=== PATIENT | female | born 1935 | race Caucasian/White ===

== ENCOUNTER 2019-07-05 09:57 | Day surgery (SDC) | payer MEDICARE ==
[~2019-07-05] VITALS: Ht 160 cm; Wt 78.5 kg
[2019-07-05] VITALS (21 sets, daily range): BP systolic 100–119; BP diastolic 55–84
[~2019-07-05 09:57] MED LIST: AMIO200T61 PO; AMLO2.5T2 PO; APIX5TAB3 PO; CHOL2000 PO; CRANBERRY PO; CYAN-51 PO; DOCU-329 PO; FOLI0.4T2 PO; FURO40TA4 PO; GLUC100017 PO; LISI-600 PO; METO50TA17 PO; NITR0.4T48 SL; POTA20TA10 PO; PRAV80TA3 PO; VITA400C19 PO
[2019-07-05] MEDS ORDERED: fentaNYL/PF 50MCG/1 ML 2ML syringe IV ONE (10:30)
[2019-07-05] MEDS ORDERED: MIDAZolam 1mg/ml 10ml vial IV ONE (10:30)
[2019-07-05] MEDS ORDERED: glycopyrrolate 0.2mg/ml inj IV ONE (10:30)
[2019-07-05 11:07] LABS: BASOPHILS # (AUTO) 0.1 X10'3 (0-0.2); BASOPHILS % (AUTO) 1.1 % (0-1); EOSINOPHILS # (AUTO) 0.2 X10'3 (0-0.9); EOSINOPHILS % (AUTO) 2.7 % (0-6); HEMATOCRIT 34.6 % (35.0-45.0); HEMOGLOBIN 11.6 g/dl (12.0-16.0); LYMPHOCYTES % (AUTO) 17.5 % (21-51); MEAN CORPUSCULAR HEMOGLOBIN 33.5 PG (27.0-31.0); MEAN CORPUSCULAR HGB CONC 33.5 g/dL (33.0-36.5); MEAN PLATELET VOLUME 9.9 FL (7.4-10.4); MONOCYTES # (AUTO) 0.7 X10'3 (0-0.9); MONOCYTES % (AUTO) 12.3 % (2-12); NEUTROPHILS # (AUTO) 3.7 X10'3 (1.8-7.7); NEUTROPHILS % (AUTO) 66.4 % (42-75); PLATELET COUNT 202 X10'3 (140-440); RED BLOOD COUNT 3.46 X10'6 (4.20-5.60); RED CELL DISTRIBUTION WIDTH 14.5 % (11.5-14.5); WHITE BLOOD COUNT 5.5 X10'3 (4.5-11.0)
[2019-07-05 11:16] LABS: ALBUMIN 3.5 G/DL (3.4-5.0); ANION GAP 7 (8-16); BLOOD UREA NITROGEN 30 MG/DL (7-18); BUN/CREATININE RATIO 16.8 (6.6-38.0); CALCIUM 9.2 MG/DL (8.5-10.1); CHLORIDE 103 MMOL/L (99-107); CREATININE 1.79 MG/DL (0.40-0.90); GLUCOSE 102 MG/DL (70-104); MAGNESIUM 2.7 MG/DL (1.5-2.4); POTASSIUM 4.6 MMOL/L (3.5-5.1); SODIUM 139 MMOL/L (135-145); TOTAL CARBON DIOXIDE 28.9 MMOL/L (24-32); eGFR 27 ML/MIN
[2019-07-05] MEDS ORDERED: normal saline 1000ml 1,000 ML IV SCH (11:20)
== END 2019-07-05 15:15 | disposition home or self-care (01) ==
LOC: SSTAY O 09:57
PROVIDERS: ATTEND Internal Medicine Cardiovascular Disease
DX: I48.91 Unspecified atrial fibrillation (principal); I34.0 Nonrheumatic mitral (valve) insufficiency; I42.0 Dilated cardiomyopathy; I44.7 Left bundle-branch block, unspecified; I49.3 Ventricular premature depolarization
CPT/HCPCS: 36415; 80048; 83735; 85025; 85610; 92960; 93005; 93312; J2250; J3010; J7030; 93306; J3490

== ENCOUNTER 2020-03-23 19:27 | Emergency (ER) | payer MEDICARE ==
[~2020-03-23] VITALS: Ht 160 cm; Wt 69.5 kg
[~2020-03-23 19:27] MED LIST changes: -AMLO2.5T2 PO; -CHOL2000 PO; -CYAN-51 PO; -DOCU-329 PO; +DOCU250C96 PO; +FURO20TA4 PO; -FURO40TA4 PO; +GLUC-253; -GLUC100017 PO; +LACT10SO PO; +MAGN500T15 PO; +METO25TA6 PO; -METO50TA17 PO; +MYL80T PO; +OMEP20TA23 PO; +POTA10TA19 PO; -POTA20TA10 PO; +TORS20TA3 PO; +TRAM50TA2 PO; +TRAZ-251 PO; -VITA400C19 PO
[2020-03-23 19:55] LABS: BASOPHILS % (AUTO) 0.3 % (0-1); EOSINOPHILS % (AUTO) 0.1 % (0-6); HEMATOCRIT 29.5 % (35.0-45.0); HEMOGLOBIN 10.3 g/dl (12.0-16.0); LYMPHOCYTES # (AUTO) 0.9 X10'3 (1.1-4.8); LYMPHOCYTES % (AUTO) 22.9 % (21-51); MEAN CORPUSCULAR HEMOGLOBIN 34.1 PG (27.0-31.0); MEAN CORPUSCULAR HGB CONC 34.8 g/dL (33.0-36.5); MEAN CORPUSCULAR VOLUME 98.2 FL (78-98); MEAN PLATELET VOLUME 8.8 FL (7.4-10.4); MONOCYTES # (AUTO) 0.5 X10'3 (0-0.9); MONOCYTES % (AUTO) 11.4 % (2-12); NEUTROPHILS # (AUTO) 2.6 X10'3 (1.8-7.7); NEUTROPHILS % (AUTO) 65.3 % (42-75); PLATELET COUNT 149 X10'3 (140-440); RED BLOOD COUNT 3.01 X10'6 (4.20-5.60); RED CELL DISTRIBUTION WIDTH 14.1 % (11.5-14.5)
[2020-03-23 20:15] LABS: CLARITY,URINE CLEAR (Clear); COLOR,URINE YELLOW (Yellow); GLUCOSE, URINE NEGATIVE (Neg); KETONES,URINE NEGATIVE (Neg); LEUKOCYTE ESTERASE ,URINE LARGE (Neg); NITRITES, URINE NEGATIVE (Neg); OCCULT BLOOD,URINE NEGATIVE (Neg); PH,URINE 7.5 (4.8-8.0); PROTEIN,URINE NEGATIVE (Neg); UROBILINOGEN,URINE 0.2 E.U/dL (0.2-1.0)
[2020-03-23 20:20] LABS: ALANINE AMINOTRANSFERASE 42 U/L (12-78); ALBUMIN 2.9 G/DL (3.4-5.0); ALBUMIN/GLOBULIN RATIO 0.9 (1.1-1.5); ALKALINE PHOSPHATASE 69 IU/L (46-116); ANION GAP 8 (8-16); ASPARTATE AMINO TRANSFERASE 28 U/L (10-37); BILIRUBIN,TOTAL 0.4 MG/DL (0.1-1.0); BLOOD UREA NITROGEN 19 MG/DL (7-18); CALCIUM 8.4 MG/DL (8.5-10.1); CHLORIDE 98 MMOL/L (99-107); CREATININE 1.12 MG/DL (0.40-0.90); GLUCOSE 98 MG/DL (70-104); POTASSIUM 4.3 MMOL/L (3.5-5.1); SODIUM 132 MMOL/L (135-145); TOTAL PROTEIN 6.1 G/DL (6.4-8.2); eGFR 46 ML/MIN
[2020-03-23 20:22] LABS: UA COLLECTION TYPE STRAIGHT CATH
[2020-03-23 20:23] LABS: BACTERIA,URINE 1+ /HPF (Neg); RBC,URINE NONE SEEN /HPF (0-2); SQUAMOUS EPITHELIAL CELL,UR FEW /LPF (FEW); WBC,URINE 30-50 /HPF (0-4)
[2020-03-23] MEDS ORDERED: CefTRIAXone/D5W-Rocephin 1gm 50 ML IV ONE (20:55)
[2020-03-23] MEDS ORDERED: CEPH500C5 PO (20:59)
[2020-03-23 21:30] VITALS: BP 143/87
== END 2020-03-23 21:41 | disposition home or self-care (01) ==
LOC: ER 19:27
DX: U07.1 COVID-19 (principal); N39.0 Urinary tract infection, site not specified; R11.0 Nausea; R53.1 Weakness; E86.0 Dehydration; I48.91 Unspecified atrial fibrillation; I50.9 Heart failure, unspecified; I10 Essential (primary) hypertension; Z88.2 Allergy status to sulfonamides; Z88.8 Allergy status to other drugs, medicaments and biological substances; Z79.899 Other long term (current) drug therapy
CPT/HCPCS: 36415; 71045; 80053; 81001; 83605; 83735; 84145; 85025; 87088; 93005; 96365; 99285; J0696

== ENCOUNTER 2020-06-19 09:55 | Emergency (ER) | payer MEDICARE ==
[~2020-06-19] VITALS: Ht 160 cm; Wt 69.5 kg
[~2020-06-19 09:55] MED LIST changes: -FOLI0.4T2 PO; +FOLI0.4T6 PO; -LACT10SO PO; +LACT10SO3 PO; -LISI-600 PO; +LISI20TA28 PO; +LOP25T PO; -METO25TA6 PO; -MYL80T PO; +SIME80TA15 PO
[2020-06-19] MEDS ORDERED: traMADol 50MG tablet PO ONE (11:10)
[2020-06-19 11:18] VITALS: BP 131/58
[2020-06-19] MEDS ORDERED: TRAM50TA2 PO (11:44)
== END 2020-06-19 12:19 | disposition home or self-care (01) ==
LOC: ER 09:56
DX: S52.531A Colles' fracture of right radius, initial encounter for closed fracture (principal); M25.531 Pain in right wrist; M25.511 Pain in right shoulder; R53.1 Weakness; I48.91 Unspecified atrial fibrillation; I11.0 Hypertensive heart disease with heart failure; I50.9 Heart failure, unspecified; Z98.890 Other specified postprocedural states; Z88.2 Allergy status to sulfonamides; Z88.8 Allergy status to other drugs, medicaments and biological substances; Z79.899 Other long term (current) drug therapy; W18.30XA Fall on same level, unspecified, initial encounter; Y93.89 Activity, other specified; Y92.89 Other specified places as the place of occurrence of the external cause; Y99.8 Other external cause status
CPT/HCPCS: 29125; 73090; 73110; 99284

== ENCOUNTER 2021-02-19 20:32 | Inpatient (IN) | payer MEDICARE ==
[~2021-02-19] VITALS: Ht 157.5 cm; Wt 82.1 kg
[~2021-02-19 20:32] MED LIST changes: -FURO20TA4 PO; -LACT10SO3 PO; +POTA-192 PO; -POTA10TA19 PO; -TRAZ-251 PO
[2021-02-19 21:17] LABS: BASOPHILS # (AUTO) 0.1 X10'3 (0-0.2); HEMATOCRIT 29.6 % (35.0-45.0); LYMPHOCYTES # (AUTO) 1.1 X10'3 (1.1-4.8)
[2021-02-19 21:18] LABS: BASOPHILS % (AUTO) 1.1 % (0-1); EOSINOPHILS % (AUTO) 0.4 % (0-6); LYMPHOCYTES % (AUTO) 21.3 % (21-51); MEAN CORPUSCULAR HEMOGLOBIN 33.9 PG (27.0-31.0); MEAN CORPUSCULAR HGB CONC 33.6 g/dL (33.0-36.5); MEAN CORPUSCULAR VOLUME 100.9 FL (78-98); MEAN PLATELET VOLUME 9.5 FL (7.4-10.4); MONOCYTES # (AUTO) 0.5 X10'3 (0-0.9); MONOCYTES % (AUTO) 10.5 % (2-12); NEUTROPHILS # (AUTO) 3.3 X10'3 (1.8-7.7); NEUTROPHILS % (AUTO) 66.7 % (42-75); PLATELET COUNT 287 X10'3 (140-440); RED BLOOD COUNT 2.94 X10'6 (4.20-5.60); RED CELL DISTRIBUTION WIDTH 16.5 % (11.5-14.5)
--- NOTE | 2021-02-19 21:21 | NUR ---
PT ROOMED IN BED 8. ASSUMED CARE OF PT. RECIEVED REPORT FROM EMS
--- NOTE | 2021-02-19 21:23 | NUR ---
PT TO CT
[2021-02-19 21:31] LABS: ALANINE AMINOTRANSFERASE 29 U/L (12-78); ALBUMIN 3.4 G/DL (3.4-5.0); ALKALINE PHOSPHATASE 131 IU/L (46-116); ANION GAP 9 (8-16); ASPARTATE AMINO TRANSFERASE 25 U/L (10-37); BILIRUBIN,TOTAL 0.6 MG/DL (0.1-1.0); BLOOD UREA NITROGEN 23 MG/DL (7-18); BUN/CREATININE RATIO 14.6 (6.6-38.0); CALCIUM 8.5 MG/DL (8.5-10.1); CHLORIDE 95 MMOL/L (99-107); CREATININE 1.58 MG/DL (0.40-0.90); GLUCOSE 123 MG/DL (70-104); POTASSIUM 4.9 MMOL/L (3.5-5.1); SODIUM 131 MMOL/L (135-145); TOTAL CARBON DIOXIDE 27.2 MMOL/L (24-32); TOTAL PROTEIN 6.7 G/DL (6.4-8.2); eGFR 31 ML/MIN
--- NOTE | 2021-02-19 21:32 | NUR ---
PT BACK FROM CT.
[2021-02-19 21:43] LABS: ANISOCYTOSIS 1+; GIANT PLATELET FEW; LARGE PLATELETS FEW; PLATELET ESTIMATE NORMAL; POLYCHROMASIA FEW
[2021-02-19 21:44] LABS: BURR CELLS FEW; SCHISTOCYTES FEW
[2021-02-19] MEDS ORDERED: furosemide 10 MG/1 ML 10ml inj IV ONE (21:45)
[2021-02-19] MEDS ORDERED: CefTRIAXone/D5W-Rocephin 1gm 50 ML IV ONE (21:55)
[2021-02-19] MEDS ORDERED: azithromycin/NS 500mg/250ml 250 ML IV ONE (21:55)
[2021-02-19 23:49] LABS: COLOR,URINE YELLOW (Yellow); GLUCOSE, URINE NEGATIVE (Neg); KETONES,URINE NEGATIVE (Neg); LEUKOCYTE ESTERASE ,URINE NEGATIVE (Neg); NITRITES, URINE NEGATIVE (Neg); OCCULT BLOOD,URINE NEGATIVE (Neg); PH,URINE 6.5 (4.8-8.0); PROTEIN,URINE NEGATIVE (Neg); UROBILINOGEN,URINE 0.2 E.U/dL (0.2-1.0)
[2021-02-19 23:51] LABS: UA COLLECTION TYPE STRAIGHT CATH
[2021-02-20 00:02] LABS: CLARITY,URINE SLIGHTLY CLOUDY (Clear)
[2021-02-20 00:03] LABS: BACTERIA,URINE FEW /HPF (Neg); RBC,URINE 0-2 /HPF (0-2)
[2021-02-20 00:04] LABS: HYALINE CASTS 0-3 /LPF (NEGATIVE); MUCUS STRANDS FEW /LPF (Neg); SQUAMOUS EPITHELIAL CELL,UR FEW /LPF (FEW)
[2021-02-20] MEDS ORDERED: PERFLUTREN PROTEIN-A MICROSPHR (Optison) 0.22 MG/ML 3ML VIAL IV PRN (00:25)
[2021-02-20] MEDS ORDERED: potassium Cl 20 mEq SR tablet PO PRN ×2 (00:25)
[2021-02-20] MEDS ORDERED: magnesium 4gm in 100ml NS 100 ML IV PRN (00:25)
[2021-02-20] MEDS ORDERED: magnesium 2GM in 50ml NS 50 ML IV PRN (00:25)
[2021-02-20] MEDS ORDERED: magnesium hydroxide 30ml (MOM) UD suspension PO PRN (00:25)
[2021-02-20] MEDS ORDERED: ondansetron/PF 4mg/2ml inj IV PRN (00:25)
[2021-02-20] MEDS ORDERED: potassium CL 10mEq/100ml bag 100 ML IV PRN (00:25)
[2021-02-20] MEDS ORDERED: mag hydrox/Alum hydrox/simeth 30ml oral suspension PO PRN (00:25)
[2021-02-20] MEDS ORDERED: magnesium Cl slow-release 64mg tablet PO PRN (00:25)
[2021-02-20] MEDS ORDERED: acetaminophen 325mg tablet PO PRN (00:25)
[2021-02-20] MEDS ORDERED: furosemide 20 MG/2 ML vial IV ONE ×2 (00:40→10:30)
--- NOTE | 2021-02-20 01:28 | NUR ---
SPOKE TO DR GALLARDO CONCERNING PT'S BP AND NEW ORDER FOR LASIX. DR GALLARDO WANTS TO RETIME HER LASIX FOR 1030 IN THE AM. HE ALSO RECOMMENDED OTIS WRAPPING PT'S LEGS. DAUGHTER HAD NOTED THAT PT'S BP HAS BEEN LOW OF LATE AND THAT HIS DOCTOR HAS BEEN REDUCING HER BP MEDS.
--- NOTE | 2021-02-20 01:33 | NUR ---
SPOKE TO PHARMACY, THEY WILL RETIME LASIX TOMORROW.
[2021-02-20 01:36] LABS: MAGNESIUM 2.7 MG/DL (1.5-2.4); POTASSIUM 4.6 MMOL/L (3.5-5.1)
--- NOTE | 2021-02-20 01:52 | NUR ---
SPOKE TO PT'S DAUGHTER OVER THE PHONE. DAUGHTER IS CONCERNED ABOUT PT'S DEPRESSION OVER THE PAST FEW WEEKS.
[2021-02-20] MEDS ORDERED: POLY119P2 PO (03:57)
[2021-02-20] MEDS ORDERED: APIX2.5T PO (03:57)
[2021-02-20] MEDS ORDERED: CITA20TA28 PO (03:57)
[2021-02-20] MEDS ORDERED: TRAZ-251 PO (03:57)
[2021-02-20] MEDS ORDERED: ACET-3067 PO (03:57)
--- NOTE | 2021-02-20 04:49 | NUR ---
PT HAD A LARGE BM. PT CLEANED UP. BEDSHEET AND CLOTHES CHANGED.
[2021-02-20] MEDS ORDERED: nitroGLYCERIN 0.4mg SUBLingual tab SL PRN (05:20)
[2021-02-20] MEDS: K and/or MAG REPLACEMENT MC SCH ×2 (08:00→20:00)
[2021-02-20] MEDS ORDERED: CRANBERRY PO SCH (08:00)
[2021-02-20] MEDS ORDERED: polyethylene glycol 3350 17gm powd pack PO SCH (08:00)
[2021-02-20] MEDS: pantoprazole 40mg Tablet.DR PO SCH (09:57)
[2021-02-20] MEDS: folic acid 1mg tablet PO SCH (09:57)
[2021-02-20] MEDS: apixaban 2.5mg tablet PO SCH ×2 (09:57→21:39)
[2021-02-20] MEDS: docusate sod 100mg capsule PO SCH ×2 (09:57→20:00)
[2021-02-20] MEDS: CITALOpram 10mg tablet PO SCH (09:59)
[2021-02-20] MEDS: amiodarone 200mg tablet PO SCH (09:59)
[2021-02-20] MEDS ORDERED: furosemide 10 MG/1 ML 10ml inj IV ONE (10:15)
[2021-02-20 11:00] VITALS: BP 119/81
[2021-02-20] MEDS ORDERED: CITA-311 PO (13:01)
[2021-02-20 15:00] VITALS: BP 99/73
[2021-02-20] MEDS ORDERED: ondansetron 4mg rapidly disintigrating tab PO PRN (16:15)
[2021-02-20 18:00] VITALS: BP 101/60
[2021-02-20] MEDS: furosemide 40mg/4ml inj IV SCH (21:39)
[2021-02-20] MEDS: traZODone 50mg tablet PO SCH (21:39)
[2021-02-20] MEDS: pravastatin 40mg tablet PO SCH (21:40)
[2021-02-20 22:00] VITALS: BP 106/73
[2021-02-21 02:00] VITALS: BP 97/63
[2021-02-21 06:00] VITALS: BP 98/66
[2021-02-21 06:35] LABS: BASOPHILS % (AUTO) 1.4 % (0-1); HEMATOCRIT 26.9 % (35.0-45.0); LYMPHOCYTES # (AUTO) 0.7 X10'3 (1.1-4.8); LYMPHOCYTES % (AUTO) 23.8 % (21-51); MEAN CORPUSCULAR HEMOGLOBIN 33.8 PG (27.0-31.0); MEAN CORPUSCULAR HGB CONC 33.3 g/dL (33.0-36.5); MEAN CORPUSCULAR VOLUME 101.5 FL (78-98); MEAN PLATELET VOLUME 9.7 FL (7.4-10.4); MONOCYTES # (AUTO) 0.4 X10'3 (0-0.9); MONOCYTES % (AUTO) 12.6 % (2-12); NEUTROPHILS # (AUTO) 1.8 X10'3 (1.8-7.7); NEUTROPHILS % (AUTO) 61.2 % (42-75); PLATELET COUNT 230 X10'3 (140-440); RED BLOOD COUNT 2.65 X10'6 (4.20-5.60); RED CELL DISTRIBUTION WIDTH 16.6 % (11.5-14.5)
[2021-02-21 07:04] LABS: ALANINE AMINOTRANSFERASE 22 U/L (12-78); ALKALINE PHOSPHATASE 105 IU/L (46-116); ANION GAP 8 (8-16); ASPARTATE AMINO TRANSFERASE 17 U/L (10-37); BILIRUBIN,TOTAL 0.7 MG/DL (0.1-1.0); BLOOD UREA NITROGEN 19 MG/DL (7-18); BUN/CREATININE RATIO 12.4 (6.6-38.0); CALCIUM 8.5 MG/DL (8.5-10.1); CHLORIDE 102 MMOL/L (99-107); CREATININE 1.53 MG/DL (0.40-0.90); GLUCOSE 107 MG/DL (70-104); POTASSIUM 3.9 MMOL/L (3.5-5.1); SODIUM 137 MMOL/L (135-145); TOTAL CARBON DIOXIDE 27.1 MMOL/L (24-32); TOTAL PROTEIN 5.9 G/DL (6.4-8.2); eGFR 32 ML/MIN
[2021-02-21] MEDS: K and/or MAG REPLACEMENT MC SCH ×2 (08:00→20:00)
[2021-02-21 08:17] LABS: TOTAL CELLS COUNTED 100
[2021-02-21 08:18] LABS: ANISOCYTOSIS 1+; PLATELET ESTIMATE NORMAL
[2021-02-21 08:19] LABS: BURR CELLS 1+; SCHISTOCYTES FEW
[2021-02-21 08:21] LABS: LARGE PLATELETS FEW; POLYCHROMASIA FEW
[2021-02-21] MEDS: amiodarone 200mg tablet PO SCH (08:32)
[2021-02-21] MEDS: pantoprazole 40mg Tablet.DR PO SCH (08:33)
[2021-02-21] MEDS: furosemide 40mg/4ml inj IV SCH ×2 (08:33→20:00)
[2021-02-21] MEDS: folic acid 1mg tablet PO SCH (08:33)
[2021-02-21] MEDS: docusate sod 100mg capsule PO SCH ×2 (08:34→20:00)
[2021-02-21] MEDS: apixaban 2.5mg tablet PO SCH (08:34)
[2021-02-21] MEDS: CITALOpram 10mg tablet PO SCH (08:34)
[2021-02-21] MEDS ORDERED: mag hydrox/Alum hydrox/simeth 30ml oral suspension PO ONE (10:25)
[2021-02-21] MEDS ORDERED: famotidine 20MG/2.5ML oral suspension PO ONE (10:25)
[2021-02-21] MEDS ORDERED: famotidine 20mg tablet PO ONE (10:35)
[2021-02-21 11:00] VITALS: BP 115/69
--- NOTE | 2021-02-21 11:34 | NUR ---
Malnutrition Consult: Pt admit DX CHF EF 15-20% per EMR. Pt PO 56% avg first two heart healthy meals meeting estimated needs so far this admit. Pt unsure of wt loss hx w/ no scaled wt this or prior admits though reports wts consistent per EMR. Pt has normal strength, BLE +2 pitting edema likely r/t DX, and appears WD/WN per ER note. Pt lacks minimum malnutrition criteria at this time. Addendum: 02/21/21 at [address] Amended: Links added.
[2021-02-21 15:00] VITALS: BP 106/7
[2021-02-21 18:00] VITALS: BP 113/72
[2021-02-21] MEDS: pravastatin 40mg tablet PO SCH (21:00)
[2021-02-21] MEDS: traZODone 50mg tablet PO SCH (21:21)
[2021-02-22] VITALS (16 sets, daily range): BP systolic 100–123; BP diastolic 49–72
[2021-02-22 06:57] LABS: BASOPHILS % (AUTO) 1.4 % (0-1); EOSINOPHILS % (AUTO) 1.1 % (0-6); HEMOGLOBIN 8.4 g/dl (12.0-16.0); LYMPHOCYTES # (AUTO) 0.9 X10'3 (1.1-4.8); LYMPHOCYTES % (AUTO) 26.4 % (21-51); MEAN CORPUSCULAR HEMOGLOBIN 33.8 PG (27.0-31.0); MEAN CORPUSCULAR HGB CONC 33.7 g/dL (33.0-36.5); MEAN CORPUSCULAR VOLUME 100.4 FL (78-98); MEAN PLATELET VOLUME 9.5 FL (7.4-10.4); MONOCYTES # (AUTO) 0.4 X10'3 (0-0.9); MONOCYTES % (AUTO) 12.6 % (2-12); NEUTROPHILS # (AUTO) 1.9 X10'3 (1.8-7.7); NEUTROPHILS % (AUTO) 58.5 % (42-75); PLATELET COUNT 213 X10'3 (140-440); RED BLOOD COUNT 2.49 X10'6 (4.20-5.60); RED CELL DISTRIBUTION WIDTH 16.6 % (11.5-14.5); WHITE BLOOD COUNT 3.2 X10'3 (4.5-11.0)
[2021-02-22 07:14] LABS: ALANINE AMINOTRANSFERASE 21 U/L (12-78); ALBUMIN 2.6 G/DL (3.4-5.0); ALKALINE PHOSPHATASE 91 IU/L (46-116); ANION GAP 7 (8-16); ASPARTATE AMINO TRANSFERASE 15 U/L (10-37); BILIRUBIN,TOTAL 0.5 MG/DL (0.1-1.0); BLOOD UREA NITROGEN 17 MG/DL (7-18); BUN/CREATININE RATIO 11.6 (6.6-38.0); CALCIUM 8.1 MG/DL (8.5-10.1); CHLORIDE 104 MMOL/L (99-107); CREATININE 1.47 MG/DL (0.40-0.90); GLUCOSE 100 MG/DL (70-104); POTASSIUM 3.4 MMOL/L (3.5-5.1); SODIUM 138 MMOL/L (135-145); TOTAL CARBON DIOXIDE 26.9 MMOL/L (24-32); TOTAL PROTEIN 5.2 G/DL (6.4-8.2); eGFR 34 ML/MIN
[2021-02-22] MEDS: pantoprazole 40mg Tablet.DR PO SCH (07:20)
[2021-02-22] MEDS: CITALOpram 10mg tablet PO SCH (07:20)
[2021-02-22] MEDS: amiodarone 200mg tablet PO SCH (07:20)
[2021-02-22] MEDS: folic acid 1mg tablet PO SCH (07:20)
[2021-02-22] MEDS: furosemide 40mg/4ml inj IV SCH ×2 (07:21→20:26)
[2021-02-22] MEDS: docusate sod 100mg capsule PO SCH ×2 (07:21→20:26)
[2021-02-22] MEDS: K and/or MAG REPLACEMENT MC SCH ×2 (08:00→20:00)
[2021-02-22] MEDS ORDERED: MIDAZolam 1mg/ml 10ml vial IV STA (08:02)
[2021-02-22] MEDS ORDERED: fentaNYL/PF 50MCG/1 ML 2ML syringe IV ONE (08:05)
--- NOTE | 2021-02-22 08:32 | NUR ---
RT paged to bedside for cardioversion.
--- NOTE | 2021-02-22 09:18 | NUR ---
Pt cardioverted at bedside with Dr. Friedman. continue to sit at bedside to monitor. VS stable. no s/sx acute distress. pt rouses to verbal stimuli then quickly returns to sleep.
--- NOTE | 2021-02-22 09:20 | NUR ---
reported off to Reginaldo CRENSHAW
--- NOTE | 2021-02-22 09:22 | NUR ---
pt awake, requesting her phone to call her daughter, wondering when pacemaker will bepalce.d
[2021-02-22] MEDS: pravastatin 40mg tablet PO SCH (20:26)
[2021-02-22] MEDS: traZODone 50mg tablet PO SCH (20:26)
[2021-02-23] VITALS (15 sets, daily range): BP systolic 92–124; BP diastolic 43–65
[2021-02-23] MEDS ORDERED: ceFAZolin 2gm in dextrose, iso 50 ML IV ONE (06:00)
[2021-02-23] MEDS ORDERED: vancomycin/NS 1 GM ADD-VANTAGE 250 ML X 1 DOSE IV ONE (06:00)
[2021-02-23 06:41] LABS: BASOPHILS # (AUTO) 0.1 X10'3 (0-0.2); BASOPHILS % (AUTO) 1.4 % (0-1); EOSINOPHILS % (AUTO) 1.2 % (0-6); HEMATOCRIT 25.3 % (35.0-45.0); HEMOGLOBIN 8.4 g/dl (12.0-16.0); LYMPHOCYTES # (AUTO) 0.8 X10'3 (1.1-4.8); LYMPHOCYTES % (AUTO) 20.7 % (21-51); MEAN CORPUSCULAR HEMOGLOBIN 33.7 PG (27.0-31.0); MEAN CORPUSCULAR HGB CONC 33.4 g/dL (33.0-36.5); MEAN PLATELET VOLUME 9.3 FL (7.4-10.4); MONOCYTES # (AUTO) 0.5 X10'3 (0-0.9); MONOCYTES % (AUTO) 12.2 % (2-12); NEUTROPHILS # (AUTO) 2.5 X10'3 (1.8-7.7); NEUTROPHILS % (AUTO) 64.5 % (42-75); PLATELET COUNT 218 X10'3 (140-440); RED CELL DISTRIBUTION WIDTH 16.1 % (11.5-14.5); WHITE BLOOD COUNT 3.8 X10'3 (4.5-11.0)
[2021-02-23 06:57] LABS: ALANINE AMINOTRANSFERASE 16 U/L (12-78); ALBUMIN 2.7 G/DL (3.4-5.0); ALKALINE PHOSPHATASE 90 IU/L (46-116); ANION GAP 5 (8-16); ASPARTATE AMINO TRANSFERASE 10 U/L (10-37); BILIRUBIN,TOTAL 0.5 MG/DL (0.1-1.0); BLOOD UREA NITROGEN 18 MG/DL (7-18); BUN/CREATININE RATIO 11.6 (6.6-38.0); CALCIUM 8.8 MG/DL (8.5-10.1); CHLORIDE 105 MMOL/L (99-107); CREATININE 1.55 MG/DL (0.40-0.90); GLUCOSE 102 MG/DL (70-104); POTASSIUM 3.6 MMOL/L (3.5-5.1); SODIUM 139 MMOL/L (135-145); TOTAL CARBON DIOXIDE 28.6 MMOL/L (24-32); TOTAL PROTEIN 5.5 G/DL (6.4-8.2); eGFR 32 ML/MIN
--- NOTE | 2021-02-23 07:00 | NUR ---
Patient in room PCU 3014. I have received report from Aden CRENSHAW and had the opportunity to ask questions and assume patient care.
[2021-02-23] MEDS: docusate sod 100mg capsule PO SCH ×2 (07:29→20:32)
[2021-02-23] MEDS: furosemide 40mg/4ml inj IV SCH ×2 (07:29→20:32)
[2021-02-23] MEDS: pantoprazole 40mg Tablet.DR PO SCH (07:30)
[2021-02-23] MEDS: folic acid 1mg tablet PO SCH (07:30)
[2021-02-23] MEDS: CITALOpram 10mg tablet PO SCH (07:31)
[2021-02-23] MEDS: amiodarone 200mg tablet PO SCH (07:31)
[2021-02-23] MEDS: K and/or MAG REPLACEMENT MC SCH ×2 (08:00→20:00)
[2021-02-23] MEDS ORDERED: LIDOcaine 1% w/EPI 1:100,000 30ml vial (MDV) ONE (08:39)
[2021-02-23] MEDS ORDERED: midazolam 1 mg/ML 2ml injection ONE ×2 (08:39→09:51)
[2021-02-23] MEDS ORDERED: fentaNYL/PF 50MCG/1 ML 2ML syringe ONE (08:39)
[2021-02-23] MEDS ORDERED: heparin 1,000 UNITS/NS 500ml 500 ML ONE (08:40)
[2021-02-23] MEDS ORDERED: vancomycin 1,000mg inj ONE (08:40)
[2021-02-23] MEDS ORDERED: iohexol 350 MG/ML 50ML vial IV ONE (09:48)
--- NOTE | 2021-02-23 18:46 | NUR ---
Problems reprioritized. Patient report given, questions answered & plan of care reviewed with Prudence RN.
--- NOTE | 2021-02-23 19:05 | NUR ---
Patient in room PCU 3014. I have received report from ABDULAZIZ CRENSHAW and had the opportunity to ask questions and assume patient care.
[2021-02-23] MEDS: traZODone 50mg tablet PO SCH (20:32)
[2021-02-23] MEDS: pravastatin 40mg tablet PO SCH (20:32)
[2021-02-23] MEDS ORDERED: acetaminophen 325mg tablet PO PRN (23:25)
[2021-02-24] MEDS: potassium Cl 20 mEq SR tablet PO PRN ×3 (01:00→21:13)
[2021-02-24 02:00] VITALS: BP 90/52
--- NOTE | 2021-02-24 06:12 | NUR ---
Problems reprioritized. Patient report given, questions answered & plan of care reviewed with ABDULAZIZ CRENSHAW.
--- NOTE | 2021-02-24 06:34 | NUR ---
Patient in room PCU 3014. I have received report from Maura CRENSHAW and had the opportunity to ask questions and assume patient care.
[2021-02-24 06:59] LABS: BASOPHILS % (AUTO) 1.1 % (0-1); EOSINOPHILS % (AUTO) 1.3 % (0-6); HEMATOCRIT 25.5 % (35.0-45.0); HEMOGLOBIN 8.7 g/dl (12.0-16.0); LYMPHOCYTES # (AUTO) 0.5 X10'3 (1.1-4.8); LYMPHOCYTES % (AUTO) 13.8 % (21-51); MEAN CORPUSCULAR HEMOGLOBIN 34.3 PG (27.0-31.0); MEAN CORPUSCULAR HGB CONC 34.1 g/dL (33.0-36.5); MEAN CORPUSCULAR VOLUME 100.5 FL (78-98); MEAN PLATELET VOLUME 9.1 FL (7.4-10.4); MONOCYTES # (AUTO) 0.5 X10'3 (0-0.9); MONOCYTES % (AUTO) 13.7 % (2-12); NEUTROPHILS # (AUTO) 2.7 X10'3 (1.8-7.7); NEUTROPHILS % (AUTO) 70.1 % (42-75); PLATELET COUNT 227 X10'3 (140-440); RED BLOOD COUNT 2.54 X10'6 (4.20-5.60); RED CELL DISTRIBUTION WIDTH 16.7 % (11.5-14.5); WHITE BLOOD COUNT 3.9 X10'3 (4.5-11.0)
[2021-02-24 07:00] VITALS: BP 91/52
[2021-02-24 07:17] LABS: ALANINE AMINOTRANSFERASE 14 U/L (12-78); ALBUMIN 2.7 G/DL (3.4-5.0); ALKALINE PHOSPHATASE 91 IU/L (46-116); ANION GAP 9 (8-16); ASPARTATE AMINO TRANSFERASE 18 U/L (10-37); BILIRUBIN,TOTAL 0.7 MG/DL (0.1-1.0); BLOOD UREA NITROGEN 16 MG/DL (7-18); BUN/CREATININE RATIO 12.3 (6.6-38.0); CALCIUM 8.6 MG/DL (8.5-10.1); CHLORIDE 100 MMOL/L (99-107); GLUCOSE 106 MG/DL (70-104); POTASSIUM 3.4 MMOL/L (3.5-5.1); SODIUM 137 MMOL/L (135-145); TOTAL CARBON DIOXIDE 27.8 MMOL/L (24-32); TOTAL PROTEIN 5.5 G/DL (6.4-8.2); eGFR 39 ML/MIN
[2021-02-24] MEDS: docusate sod 100mg capsule PO SCH (08:00)
[2021-02-24] MEDS: K and/or MAG REPLACEMENT MC SCH ×2 (08:00→20:00)
[2021-02-24] MEDS: furosemide 40mg/4ml inj IV SCH ×2 (08:00→21:13)
[2021-02-24] MEDS: folic acid 1mg tablet PO SCH (08:22)
[2021-02-24] MEDS: pantoprazole 40mg Tablet.DR PO SCH (08:22)
[2021-02-24] MEDS: amiodarone 200mg tablet PO SCH (08:22)
[2021-02-24] MEDS ORDERED: magnesium 4gm in 100ml NS 100 ML IV PRN (10:20)
[2021-02-24] MEDS ORDERED: potassium Cl 20 mEq SR tablet PO PRN (10:20)
[2021-02-24] MEDS ORDERED: magnesium Cl slow-release 64mg tablet PO PRN (10:20)
[2021-02-24] MEDS ORDERED: potassium CL 10mEq/100ml bag 100 ML IV PRN (10:20)
[2021-02-24] MEDS: CITALOpram 10mg tablet PO SCH (10:57)
[2021-02-24 11:00] VITALS: BP 109/67
[2021-02-24] MEDS ORDERED: sennosides/docusate sodium tablet PO PRN (11:30)
[2021-02-24] MEDS ORDERED: acetaminophen w/codeine (30MG) #3 tablet PO PRN (13:10)
[2021-02-24 15:00] VITALS: BP 119/72
[2021-02-24 18:00] VITALS: BP 105/63
--- NOTE | 2021-02-24 19:15 | NUR ---
Patient in room PCU 3014. I have received report from Shabana CRENSHAW and had the opportunity to ask questions and assume patient care.
[2021-02-24] MEDS: traZODone 50mg tablet PO SCH (21:13)
[2021-02-24] MEDS: pravastatin 40mg tablet PO SCH (21:13)
[2021-02-24 22:00] VITALS: BP 105/61
[2021-02-25] MEDS: potassium Cl 20 mEq SR tablet PO PRN (01:30)
[2021-02-25 02:00] VITALS: BP 119/65
[2021-02-25 07:12] LABS: BASOPHILS # (AUTO) 0.1 X10'3 (0-0.2); BASOPHILS % (AUTO) 1.7 % (0-1); EOSINOPHILS % (AUTO) 1.5 % (0-6); HEMATOCRIT 26.8 % (35.0-45.0); HEMOGLOBIN 8.9 g/dl (12.0-16.0); LYMPHOCYTES # (AUTO) 0.7 X10'3 (1.1-4.8); LYMPHOCYTES % (AUTO) 23.4 % (21-51); MEAN CORPUSCULAR HEMOGLOBIN 33.2 PG (27.0-31.0); MEAN CORPUSCULAR HGB CONC 33.3 g/dL (33.0-36.5); MEAN CORPUSCULAR VOLUME 99.6 FL (78-98); MEAN PLATELET VOLUME 9.1 FL (7.4-10.4); MONOCYTES # (AUTO) 0.4 X10'3 (0-0.9); MONOCYTES % (AUTO) 12.7 % (2-12); NEUTROPHILS # (AUTO) 1.8 X10'3 (1.8-7.7); NEUTROPHILS % (AUTO) 60.7 % (42-75); PLATELET COUNT 221 X10'3 (140-440); RED BLOOD COUNT 2.69 X10'6 (4.20-5.60); RED CELL DISTRIBUTION WIDTH 16.6 % (11.5-14.5)
[2021-02-25 07:24] LABS: ALANINE AMINOTRANSFERASE 11 U/L (12-78); ALBUMIN 2.7 G/DL (3.4-5.0); ALBUMIN/GLOBULIN RATIO 0.9 (1.1-1.5); ALKALINE PHOSPHATASE 84 IU/L (46-116); ANION GAP 6 (8-16); ASPARTATE AMINO TRANSFERASE 17 U/L (10-37); BILIRUBIN,TOTAL 0.6 MG/DL (0.1-1.0); BLOOD UREA NITROGEN 13 MG/DL (7-18); BUN/CREATININE RATIO 11.3 (6.6-38.0); CHLORIDE 105 MMOL/L (99-107); CREATININE 1.15 MG/DL (0.40-0.90); GLUCOSE 104 MG/DL (70-104); POTASSIUM 3.7 MMOL/L (3.5-5.1); SODIUM 140 MMOL/L (135-145); TOTAL CARBON DIOXIDE 28.9 MMOL/L (24-32); TOTAL PROTEIN 5.6 G/DL (6.4-8.2); eGFR 45 ML/MIN
[2021-02-25] MEDS: furosemide 40mg/4ml inj IV SCH ×2 (08:00→20:48)
[2021-02-25] MEDS: K and/or MAG REPLACEMENT MC SCH ×2 (08:00→20:00)
[2021-02-25 08:25] LABS: ANISOCYTOSIS 1+; PLATELET ESTIMATE NORMAL; TOTAL CELLS COUNTED 100
[2021-02-25 08:26] LABS: ACANTHOCYTES 1+; POLYCHROMASIA 1+
[2021-02-25 08:27] LABS: ELLIPTOCYTES 1+
--- NOTE | 2021-02-25 09:12 | NUR ---
Problems reprioritized. Patient report given, questions answered & plan of care reviewed with Zenia CRENSHAW.
[2021-02-25] MEDS: CITALOpram 10mg tablet PO SCH (09:33)
[2021-02-25] MEDS: folic acid 1mg tablet PO SCH (09:34)
[2021-02-25] MEDS: amiodarone 200mg tablet PO SCH (09:35)
[2021-02-25] MEDS: pantoprazole 40mg Tablet.DR PO SCH (09:35)
[2021-02-25 09:37] VITALS: BP 102/58
--- NOTE | 2021-02-25 09:48 | NUR ---
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 Pt currently on Heart Healthy diet w/ moderate PO intake, avg 65% x 11 meals which meets 100% of est protein and energy needs at this time. LBM 02/23. No nutrition intervention implemented at this time, will continue to monitor. Recs: 1. Continue Heart Healthy diet as tolerated, consider Regular diet if PO declines 2. Bowel care per rx 3. Scaled wt this admit, subsequent weekly wts Addendum: 02/25/21 at [address] Amended: Links added.
[2021-02-25 11:00] VITALS: BP 94/59
[2021-02-25 18:00] VITALS: BP 102/63
--- NOTE | 2021-02-25 18:52 | NUR ---
Problems reprioritized. Patient report given, questions answered & plan of care reviewed with FLOWER Montgomery. Patient stable at transfer of care.
[2021-02-25] MEDS: traZODone 50mg tablet PO SCH (20:48)
[2021-02-25] MEDS: pravastatin 40mg tablet PO SCH (21:02)
[2021-02-25 22:00] VITALS: BP 90/57
[2021-02-26] MEDS: cephalexin 500mg capsule PO SCH ×2 (00:10→08:26)
[2021-02-26 03:00] VITALS: BP 103/53
--- NOTE | 2021-02-26 06:42 | NUR ---
Patient in room PCU 3014. I have received report from Valentina CRENSHAW and had the opportunity to ask questions and assume patient care.
--- NOTE | 2021-02-26 06:55 | NUR ---
Change of shift report given to Shabana CRENSHAW
[2021-02-26 08:00] VITALS: BP 85/54
[2021-02-26] MEDS: furosemide 40mg/4ml inj IV SCH (08:00)
[2021-02-26] MEDS: pantoprazole 40mg Tablet.DR PO SCH (08:26)
[2021-02-26] MEDS: folic acid 1mg tablet PO SCH (08:26)
[2021-02-26] MEDS: CITALOpram 10mg tablet PO SCH (08:26)
[2021-02-26] MEDS: amiodarone 200mg tablet PO SCH (08:27)
--- NOTE | 2021-02-26 12:15 | NUR ---
Placed aj catheter per md orders. No complications noted, pt tolerated well. Will inform primary nurse Andres Donald
--- NOTE | 2021-02-26 12:54 | NUR ---
called report to Shashank Campos of [facility].
[2021-02-26] MEDS ORDERED: apixaban 5mg tablet PO SCH (20:00)
[2021-02-27] MEDS ORDERED: furosemide 20MG tablet PO SCH (08:00)
== END 2021-02-26 12:56 | DRG 242 ==
LOC: ER 20:33 → ED HOLD 02-20 00:26 → PCU 3S 02-20 08:02
PROVIDERS: ADMIT Internal Medicine; ATTEND Internal Medicine
PROC: 5A2204Z Restoration of Cardiac Rhythm, Single (ICD-10-PCS; 2021-02-22)
PROC: 0JH607Z Insertion of Cardiac Resynchronization Pacemaker Pulse Generator into Chest Subcutaneous Tissue and Fascia, Open Approach (ICD-10-PCS; principal; 2021-02-23)
PROC: 02HL3JZ Insertion of Pacemaker Lead into Left Ventricle, Percutaneous Approach (ICD-10-PCS; 2021-02-23)
PROC: 02H63JZ Insertion of Pacemaker Lead into Right Atrium, Percutaneous Approach (ICD-10-PCS; 2021-02-23)
PROC: 02HK3JZ Insertion of Pacemaker Lead into Right Ventricle, Percutaneous Approach (ICD-10-PCS; 2021-02-23)
DX: I48.0 Paroxysmal atrial fibrillation (principal); I50.23 Acute on chronic systolic (congestive) heart failure; S72.402A Unspecified fracture of lower end of left femur, initial encounter for closed fracture; N17.9 Acute kidney failure, unspecified; I13.0 Hypertensive heart and chronic kidney disease with heart failure and stage 1 through stage 4 chronic kidney disease, or unspecified chronic kidney disease; I44.7 Left bundle-branch block, unspecified; I42.0 Dilated cardiomyopathy; Z66 Do not resuscitate; Z20.822 Contact with and (suspected) exposure to COVID-19; N18.9 Chronic kidney disease, unspecified; E78.5 Hyperlipidemia, unspecified; E78.00 Pure hypercholesterolemia, unspecified; I08.1 Rheumatic disorders of both mitral and tricuspid valves; I25.10 Atherosclerotic heart disease of native coronary artery without angina pectoris; D64.9 Anemia, unspecified; Z60.2 Problems related to living alone; Z96.612 Presence of left artificial shoulder joint; Z96.643 Presence of artificial hip joint, bilateral; F32.A Depression, unspecified; R00.0 Tachycardia, unspecified; K59.00 Constipation, unspecified; Z85.3 Personal history of malignant neoplasm of breast; Z90.49 Acquired absence of other specified parts of digestive tract; Z90.710 Acquired absence of both cervix and uterus; Z92.3 Personal history of irradiation; Z95.5 Presence of coronary angioplasty implant and graft; Z98.1 Arthrodesis status; Z88.2 Allergy status to sulfonamides; Z88.8 Allergy status to other drugs, medicaments and biological substances; Z79.899 Other long term (current) drug therapy
CPT/HCPCS: 33208; 33225; 36415; 70450; 71045; 71046; 80053; 81001; 81003; 83735; 83880; 84132; 84484; 85007; 85008; 85025; 85610; 87088; 87635; 93005; 93306; 94760; 94799; 96365; 96375; 97110; 97116; 97162; 97530; 99152; 99153; 99285; A4565; A4620; A6258; C1769; C1887; C1894; C1895; C1900; C2621; C9803; G0378; J0456; J0690; J0696; J1644; J1940; J2250; J3010; J3370; J3490; Q9967

== ENCOUNTER 2021-03-21 09:16 | Emergency (ER) | payer MEDICARE ==
[~2021-03-21] VITALS: Ht 160 cm; Wt 70.5 kg
[~2021-03-21 09:16] MED LIST changes: +APIX2.5T PO; -APIX5TAB3 PO; +CITA-311 PO; -DOCU250C96 PO; -LISI20TA28 PO; -LOP25T PO; +POLY119P2 PO; -SIME80TA15 PO; -TRAM50TA2 PO; +TRAZ-251 PO
[2021-03-21 10:04] LABS: BASOPHILS # (AUTO) 0.1 X10'3 (0-0.2); EOSINOPHILS # (AUTO) 0.3 X10'3 (0-0.9); EOSINOPHILS % (AUTO) 2.5 % (0-6); HEMATOCRIT 23.9 % (35.0-45.0); HEMOGLOBIN 7.9 g/dl (12.0-16.0); LYMPHOCYTES # (AUTO) 0.7 X10'3 (1.1-4.8); LYMPHOCYTES % (AUTO) 6.5 % (21-51); MEAN CORPUSCULAR HEMOGLOBIN 32.8 PG (27.0-31.0); MEAN CORPUSCULAR HGB CONC 33.2 g/dL (33.0-36.5); MEAN CORPUSCULAR VOLUME 98.9 FL (78-98); MEAN PLATELET VOLUME 9.6 FL (7.4-10.4); MONOCYTES # (AUTO) 0.9 X10'3 (0-0.9); NEUTROPHILS # (AUTO) 8.2 X10'3 (1.8-7.7); PLATELET COUNT 293 X10'3 (140-440); RED BLOOD COUNT 2.42 X10'6 (4.20-5.60); WHITE BLOOD COUNT 10.1 X10'3 (4.5-11.0)
[2021-03-21 10:19] LABS: ALANINE AMINOTRANSFERASE 40 U/L (12-78); ALBUMIN 1.5 G/DL (3.4-5.0); ALBUMIN/GLOBULIN RATIO 0.5 (1.1-1.5); ALKALINE PHOSPHATASE 141 IU/L (46-116); ANION GAP 3 (8-16); ASPARTATE AMINO TRANSFERASE 36 U/L (10-37); BILIRUBIN,TOTAL 0.7 MG/DL (0.1-1.0); BLOOD UREA NITROGEN 33 MG/DL (7-18); CHLORIDE 102 MMOL/L (99-107); CREATININE 1.18 MG/DL (0.40-0.90); GLUCOSE 127 MG/DL (70-104); POTASSIUM 4.8 MMOL/L (3.5-5.1); SODIUM 132 MMOL/L (135-145); TOTAL PROTEIN 4.6 G/DL (6.4-8.2); eGFR 43 ML/MIN
[2021-03-21 10:28] LABS: C-REACTIVE PROTEIN 4.95 MG/DL (0.0-0.5); LIPASE < 50 U/L (73-393); MAGNESIUM 2.9 MG/DL (1.5-2.4)
[2021-03-21 10:37] LABS: ANISOCYTOSIS 2+; ELLIPTOCYTES FEW; LARGE PLATELETS FEW; PLATELET ESTIMATE NORMAL; TEAR DROP CELLS FEW
[2021-03-21 10:38] LABS: ACANTHOCYTES FEW; HYPOCHROMASIA 1+
[2021-03-21] MEDS ORDERED: furosemide 40mg/4ml inj IV ONE (11:25)
--- NOTE | 2021-03-21 12:50 | NUR ---
SPOKE TO AMANDA PT PRIMARY NURSEGIVEN NURSE TO NURSE REPORT ,FIRST TROP NEGATIVE AND 2ND TROP IS PENDING,PT RECIVED LASIX IV FOR ELEV PROBNP ,NOTIFIED PRIMARY NURSE REBAKEMicah.
--- NOTE | 2021-03-21 14:00 | NUR ---
PROVIDED WITH ENSURE, TOLERATING THICKENED LIQUID WELL
[2021-03-21 16:00] VITALS: BP 122/48
--- NOTE | 2021-03-21 16:00 | NUR ---
PROVIDED WITH YOGURT BY DAUGHTER, TOLERATES SOFT FOOD WELL.
--- NOTE | 2021-03-21 16:09 | NUR ---
PT PICKED UP BY WILBERTO CARGO VIA [facility].
--- NOTE | 2021-03-21 18:59 | NUR ---
PT'S FACILITY CALLED, RN STATES THAT SHE NEVER GOT A NURSE TO NURSE REPORT OR ANY DC PAPERS. REVIEWED PROVIDERS DX WITH RN AND FAXED THE PT'S DC PAPERS AT HER REQUEST TO .
== END 2021-03-21 16:00 | disposition home or self-care (01) ==
LOC: ER 09:16
DX: R07.89 Other chest pain (principal); R60.1 Generalized edema; D53.9 Nutritional anemia, unspecified; E46 Unspecified protein-calorie malnutrition; Z68.27 Body mass index [BMI] 27.0-27.9, adult; R06.02 Shortness of breath; I48.91 Unspecified atrial fibrillation; I25.10 Atherosclerotic heart disease of native coronary artery without angina pectoris; I13.0 Hypertensive heart and chronic kidney disease with heart failure and stage 1 through stage 4 chronic kidney disease, or unspecified chronic kidney disease; I50.9 Heart failure, unspecified; N18.9 Chronic kidney disease, unspecified; E78.00 Pure hypercholesterolemia, unspecified; Z90.710 Acquired absence of both cervix and uterus; Z98.890 Other specified postprocedural states
CPT/HCPCS: 36415; 71045; 80053; 80162; 83690; 83735; 83880; 84145; 84484; 85008; 85025; 85379; 85651; 86140; 93005; 96374; 99285; J1940

== ENCOUNTER 2021-06-29 07:55 | Day surgery (SDC) | payer MEDICARE ==
[2021-06-29] VITALS (15 sets, daily range): BP systolic 94–118; BP diastolic 46–73
[~2021-06-29] VITALS: Ht 165.1 cm; Wt 80.3 kg
[~2021-06-29 07:55] MED LIST changes: +AMIO200T27 PO; -AMIO200T61 PO; -CRANBERRY PO; -FOLI0.4T6 PO; +FOLI1TAB27 PO; +FURO-150 PO; -GLUC-253; -MAGN500T15 PO; -NITR0.4T48 SL; +NITR0.4T51 SL; +OMEP20CA16 PO; -OMEP20TA23 PO; -POTA-192 PO; +POTA10CA44 PO; -TORS20TA3 PO; -TRAZ-251 PO
[2021-06-29] MEDS ORDERED: MIDAZolam 1mg/ml 10ml vial IV ONE (08:30)
[2021-06-29] MEDS ORDERED: normal saline 1000ml 1,000 ML IV SCH (08:30)
[2021-06-29] MEDS ORDERED: fentaNYL/PF 50MCG/1 ML 2ML syringe IV ONE (08:30)
[2021-06-29] MEDS ORDERED: FURO80TA3 PO (08:31)
[2021-06-29] MEDS ORDERED: TRAZ-251 PO (08:32)
[2021-06-29] MEDS ORDERED: OMEP40CA21 PO (08:32)
[2021-06-29] MEDS ORDERED: MAGN500C4 PO (08:33)
[2021-06-29] MEDS ORDERED: ZINC50TA67 PO (08:35)
[2021-06-29] MEDS ORDERED: CHOL10006 PO (08:37)
[2021-06-29] MEDS ORDERED: CRAN450T4 PO (08:37)
[2021-06-29] MEDS ORDERED: GLUC-95 PO (08:38)
[2021-06-29 09:21] LABS: BASOPHILS % (AUTO) 1.4 % (0-1); EOSINOPHILS % (AUTO) 0.7 % (0-6); HEMATOCRIT 22.3 % (35.0-45.0); HEMOGLOBIN 7.3 g/dl (12.0-16.0); LYMPHOCYTES # (AUTO) 0.6 X10'3 (1.1-4.8); LYMPHOCYTES % (AUTO) 16.4 % (21-51); MEAN CORPUSCULAR HEMOGLOBIN 32.9 PG (27.0-31.0); MEAN CORPUSCULAR HGB CONC 32.7 g/dL (33.0-36.5); MEAN CORPUSCULAR VOLUME 100.8 FL (78-98); MEAN PLATELET VOLUME 8.8 FL (7.4-10.4); MONOCYTES # (AUTO) 0.4 X10'3 (0-0.9); MONOCYTES % (AUTO) 12.7 % (2-12); NEUTROPHILS # (AUTO) 2.3 X10'3 (1.8-7.7); NEUTROPHILS % (AUTO) 68.8 % (42-75); PLATELET COUNT 292 X10'3 (140-440); RED BLOOD COUNT 2.21 X10'6 (4.20-5.60); RED CELL DISTRIBUTION WIDTH 17.6 % (11.5-14.5); WHITE BLOOD COUNT 3.4 X10'3 (4.5-11.0)
[2021-06-29 09:28] LABS: ALBUMIN 2.6 G/DL (3.4-5.0); BLOOD UREA NITROGEN 15 MG/DL (7-18); BUN/CREATININE RATIO 12.8 (6.6-38.0); CALCIUM 8.6 MG/DL (8.5-10.1); CHLORIDE 103 MMOL/L (99-107); CREATININE 1.17 MG/DL (0.40-0.90); GLUCOSE 103 MG/DL (70-104); MAGNESIUM 1.7 MG/DL (1.5-2.4); POTASSIUM 3.7 MMOL/L (3.5-5.1); SODIUM 136 MMOL/L (135-145); eGFR 44 ML/MIN
[2021-06-29 09:34] LABS: ANION GAP 7 (8-16); TOTAL CARBON DIOXIDE 26.1 MMOL/L (24-32)
== END 2021-06-29 13:02 ==
LOC: SSTAY O 07:55
PROVIDERS: ATTEND Internal Medicine Cardiovascular Disease
DX: I48.91 Unspecified atrial fibrillation (principal); I12.9 Hypertensive chronic kidney disease with stage 1 through stage 4 chronic kidney disease, or unspecified chronic kidney disease; N18.9 Chronic kidney disease, unspecified; I34.0 Nonrheumatic mitral (valve) insufficiency; Z87.440 Personal history of urinary (tract) infections; Z88.5 Allergy status to narcotic agent; Z88.2 Allergy status to sulfonamides; Z88.8 Allergy status to other drugs, medicaments and biological substances; Z90.49 Acquired absence of other specified parts of digestive tract; Z85.3 Personal history of malignant neoplasm of breast; Z79.899 Other long term (current) drug therapy; Z79.01 Long term (current) use of anticoagulants
CPT/HCPCS: 36415; 80048; 83735; 85025; 85610; 92960; 93005; 94760; 94799; J2250; J3010; J7030

== ENCOUNTER 2021-07-04 21:33 | Emergency (ER) | payer MEDICARE ==
[~2021-07-04] VITALS: Ht 160 cm; Wt 77.3 kg
[~2021-07-04 21:33] MED LIST changes: +CHOL10006 PO; +CRAN450T4 PO; +FURO80TA3 PO; +GLUC-95 PO; +MAGN500C4 PO; +OMEP40CA21 PO; +TRAZ-251 PO; +ZINC50TA67 PO
[2021-07-04 22:09] LABS: BASOPHILS % (AUTO) 0.8 % (0-1); EOSINOPHILS % (AUTO) 0.3 % (0-6); HEMATOCRIT 23.8 % (35.0-45.0); HEMOGLOBIN 7.9 g/dl (12.0-16.0); LYMPHOCYTES # (AUTO) 0.4 X10'3 (1.1-4.8); LYMPHOCYTES % (AUTO) 9.1 % (21-51); MEAN CORPUSCULAR HEMOGLOBIN 33.7 PG (27.0-31.0); MEAN CORPUSCULAR HGB CONC 33.3 g/dL (33.0-36.5); MEAN CORPUSCULAR VOLUME 101.3 FL (78-98); MEAN PLATELET VOLUME 8.5 FL (7.4-10.4); MONOCYTES # (AUTO) 0.4 X10'3 (0-0.9); MONOCYTES % (AUTO) 8.9 % (2-12); NEUTROPHILS % (AUTO) 80.9 % (42-75); PLATELET COUNT 290 X10'3 (140-440); RED BLOOD COUNT 2.34 X10'6 (4.20-5.60); RED CELL DISTRIBUTION WIDTH 17.2 % (11.5-14.5); WHITE BLOOD COUNT 4.9 X10'3 (4.5-11.0)
[2021-07-04 22:29] LABS: ALANINE AMINOTRANSFERASE 12 U/L (12-78); ALBUMIN 2.6 G/DL (3.4-5.0); ALBUMIN/GLOBULIN RATIO 0.8 (1.1-1.5); ALKALINE PHOSPHATASE 58 IU/L (46-116); ANION GAP 8 (8-16); ASPARTATE AMINO TRANSFERASE 20 U/L (10-37); BILIRUBIN,TOTAL 0.6 MG/DL (0.1-1.0); BLOOD UREA NITROGEN 13 MG/DL (7-18); BUN/CREATININE RATIO 10.8 (6.6-38.0); CALCIUM 8.8 MG/DL (8.5-10.1); CHLORIDE 102 MMOL/L (99-107); GLUCOSE 130 MG/DL (70-104); LIPASE < 50 U/L (73-393); POTASSIUM 3.6 MMOL/L (3.5-5.1); SODIUM 137 MMOL/L (135-145); TOTAL CARBON DIOXIDE 27.4 MMOL/L (24-32); TOTAL PROTEIN 5.9 G/DL (6.4-8.2); eGFR 42 ML/MIN
[2021-07-04] MEDS ORDERED: ondansetron/PF 4mg/2ml inj IV ONE (22:50)
[2021-07-04 23:27] LABS: CLARITY,URINE CLEAR (Clear); COLOR,URINE YELLOW (Yellow); GLUCOSE, URINE NEGATIVE (Neg); KETONES,URINE NEGATIVE (Neg); LEUKOCYTE ESTERASE ,URINE NEGATIVE (Neg); NITRITES, URINE NEGATIVE (Neg); OCCULT BLOOD,URINE NEGATIVE (Neg); PH,URINE 7.5 (4.8-8.0); PROTEIN,URINE NEGATIVE (Neg); UROBILINOGEN,URINE 0.2 E.U/dL (0.2-1.0)
[2021-07-04 23:36] LABS: UA COLLECTION TYPE STRAIGHT CATH
[2021-07-04] MEDS ORDERED: normal saline 1000ML IV soln IVB ONE (23:50)
[2021-07-04] MEDS ORDERED: ONDA4TAB12 PO (23:50)
[2021-07-04] MEDS ORDERED: proCHLORperazine 10 MG/2 ml inj IV ONE (23:50)
[2021-07-05] MEDS ORDERED: dicyclomine 10mg/ml 2ml ampule IM ONE (01:00)
[2021-07-05 01:49] VITALS: BP 130/63
== END 2021-07-05 01:50 | disposition home or self-care (01) ==
LOC: ER 21:33
DX: R10.84 Generalized abdominal pain (principal); R11.2 Nausea with vomiting, unspecified; E86.0 Dehydration; I48.91 Unspecified atrial fibrillation; I25.10 Atherosclerotic heart disease of native coronary artery without angina pectoris; E78.00 Pure hypercholesterolemia, unspecified; I13.0 Hypertensive heart and chronic kidney disease with heart failure and stage 1 through stage 4 chronic kidney disease, or unspecified chronic kidney disease; N18.9 Chronic kidney disease, unspecified; F32.A Depression, unspecified; Z86.2 Personal history of diseases of the blood and blood-forming organs and certain disorders involving the immune mechanism; Z87.440 Personal history of urinary (tract) infections; Z85.3 Personal history of malignant neoplasm of breast; Z90.710 Acquired absence of both cervix and uterus; Z60.2 Problems related to living alone; Z98.890 Other specified postprocedural states; Z88.2 Allergy status to sulfonamides; Z88.8 Allergy status to other drugs, medicaments and biological substances; Z79.899 Other long term (current) drug therapy
CPT/HCPCS: 36415; 80053; 81003; 83690; 85025; 93005; 96361; 96372; 96374; 96375; 99284; J0500; J0780; J2405; J7030

== ENCOUNTER 2021-08-29 21:49 | Emergency (ER) | payer MEDICARE ==
[~2021-08-29] VITALS: Ht 160 cm; Wt 65.0 kg
[~2021-08-29 21:49] MED LIST changes: +ONDA4TAB12 PO
[2021-08-29 23:12] LABS: BASOPHILS % (AUTO) 0.6 % (0-1); EOSINOPHILS # (AUTO) 0.1 X10'3 (0-0.9); HEMATOCRIT 24.2 % (35.0-45.0); HEMOGLOBIN 8.1 g/dl (12.0-16.0); LYMPHOCYTES # (AUTO) 0.6 X10'3 (1.1-4.8); LYMPHOCYTES % (AUTO) 10.4 % (21-51); MEAN CORPUSCULAR HEMOGLOBIN 33.2 PG (27.0-31.0); MEAN CORPUSCULAR HGB CONC 33.5 g/dL (33.0-36.5); MEAN PLATELET VOLUME 8.9 FL (7.4-10.4); MONOCYTES # (AUTO) 0.6 X10'3 (0-0.9); MONOCYTES % (AUTO) 9.6 % (2-12); NEUTROPHILS # (AUTO) 4.7 X10'3 (1.8-7.7); NEUTROPHILS % (AUTO) 78.4 % (42-75); PLATELET COUNT 278 X10'3 (140-440); RED BLOOD COUNT 2.45 X10'6 (4.20-5.60); RED CELL DISTRIBUTION WIDTH 15.8 % (11.5-14.5)
[2021-08-29 23:23] LABS: ALANINE AMINOTRANSFERASE 27 U/L (12-78); ALBUMIN 3.1 G/DL (3.4-5.0); ALBUMIN/GLOBULIN RATIO 0.9 (1.1-1.5); ALKALINE PHOSPHATASE 72 IU/L (46-116); ANION GAP 5 (8-16); ASPARTATE AMINO TRANSFERASE 23 U/L (10-37); BILIRUBIN,TOTAL 0.5 MG/DL (0.1-1.0); BLOOD UREA NITROGEN 27 MG/DL (7-18); BUN/CREATININE RATIO 20.9 (6.6-38.0); CALCIUM 9.1 MG/DL (8.5-10.1); CHLORIDE 101 MMOL/L (99-107); CREATININE 1.29 MG/DL (0.40-0.90); GLUCOSE 119 MG/DL (70-104); POTASSIUM 4.1 MMOL/L (3.5-5.1); SODIUM 134 MMOL/L (135-145); TOTAL CARBON DIOXIDE 28.1 MMOL/L (24-32); TOTAL PROTEIN 6.7 G/DL (6.4-8.2); eGFR 39 ML/MIN
[2021-08-29] MEDS ORDERED: oxyCODONE/APAP 5-325mg tablet PO ONE (23:35)
[2021-08-30] MEDS ORDERED: OXYC-148 PO (01:01)
[2021-08-30 01:19] VITALS: BP 140/54
== END 2021-08-30 01:26 | disposition home or self-care (01) ==
LOC: ER 21:50
DX: M54.50 Low back pain, unspecified (principal); I25.10 Atherosclerotic heart disease of native coronary artery without angina pectoris; I11.0 Hypertensive heart disease with heart failure; I50.9 Heart failure, unspecified; E78.00 Pure hypercholesterolemia, unspecified; I48.91 Unspecified atrial fibrillation; F32.9 Major depressive disorder, single episode, unspecified; Z90.710 Acquired absence of both cervix and uterus; Z98.890 Other specified postprocedural states; Z60.2 Problems related to living alone; Z88.2 Allergy status to sulfonamides; Z88.5 Allergy status to narcotic agent; Z88.8 Allergy status to other drugs, medicaments and biological substances; Z79.01 Long term (current) use of anticoagulants; Z79.899 Other long term (current) drug therapy
CPT/HCPCS: 36415; 72100; 72170; 74176; 80053; 85025; 99285

== ENCOUNTER 2021-09-18 19:01 | Emergency (ER) | payer MEDICARE ==
[~2021-09-18] VITALS: Ht 157.5 cm; Wt 65.9 kg
[~2021-09-18 19:01] MED LIST changes: +OXYC-148 PO
[2021-09-18 19:22] VITALS: BP 119/54
[2021-09-18] MEDS ORDERED: LIDOcaine 2% 10ml TOPICAL JELLY (Urojet) TP ONE (23:45)
== END 2021-09-19 02:46 | disposition home or self-care (01) ==
LOC: ER 19:02
DX: T83.098A Other mechanical complication of other urinary catheter, initial encounter (principal); E78.00 Pure hypercholesterolemia, unspecified; I13.0 Hypertensive heart and chronic kidney disease with heart failure and stage 1 through stage 4 chronic kidney disease, or unspecified chronic kidney disease; N18.9 Chronic kidney disease, unspecified; Z86.2 Personal history of diseases of the blood and blood-forming organs and certain disorders involving the immune mechanism; F32.A Depression, unspecified; Z87.448 Personal history of other diseases of urinary system; Z88.2 Allergy status to sulfonamides; Z79.899 Other long term (current) drug therapy; Z88.5 Allergy status to narcotic agent
CPT/HCPCS: 51702; 99284; A4314

== ENCOUNTER 2022-01-05 14:09 | Emergency (ER) | payer MEDICARE ==
[~2022-01-05] VITALS: Ht 157.5 cm; Wt 65.0 kg
[2022-01-05 14:36] VITALS: BP 142/79
== END 2022-01-05 16:28 | disposition home or self-care (01) ==
LOC: ER 14:09
DX: S72.8X2A Other fracture of left femur, initial encounter for closed fracture (principal); M25.562 Pain in left knee; E78.00 Pure hypercholesterolemia, unspecified; I13.0 Hypertensive heart and chronic kidney disease with heart failure and stage 1 through stage 4 chronic kidney disease, or unspecified chronic kidney disease; N18.9 Chronic kidney disease, unspecified; I50.9 Heart failure, unspecified; Z88.2 Allergy status to sulfonamides; Z88.5 Allergy status to narcotic agent; Z88.8 Allergy status to other drugs, medicaments and biological substances; Z90.710 Acquired absence of both cervix and uterus; Z98.890 Other specified postprocedural states; X58.XXXA Exposure to other specified factors, initial encounter; Y93.89 Activity, other specified; Y92.89 Other specified places as the place of occurrence of the external cause; Y99.8 Other external cause status
CPT/HCPCS: 29505; 73560; 99284; A5200

== ENCOUNTER 2022-01-08 08:33 | Inpatient (IN) | payer MEDICARE ==
[~2022-01-08] VITALS: Ht 157.5 cm; Wt 69.5 kg
[2022-01-08] MEDS ORDERED: normal saline 1000ML IV soln IV ONE (09:15)
[2022-01-08] MEDS ORDERED: amiodarone 200mg tablet PO ONE (09:15)
[2022-01-08] MEDS ORDERED: metoclopramide 5 mg/ml inj IV ONE (09:15)
[2022-01-08 09:36] LABS: BASOPHILS # (AUTO) 0.1 X10'3 (0-0.2); BASOPHILS % (AUTO) 1.4 % (0-1); EOSINOPHILS % (AUTO) 0.2 % (0-6); HEMATOCRIT 30.3 % (35.0-45.0); HEMOGLOBIN 10.4 g/dl (12.0-16.0); LYMPHOCYTES # (AUTO) 0.5 X10'3 (1.1-4.8); LYMPHOCYTES % (AUTO) 10.2 % (21-51); MEAN CORPUSCULAR HGB CONC 34.2 g/dL (33.0-36.5); MEAN CORPUSCULAR VOLUME 102.3 FL (78-98); MONOCYTES # (AUTO) 0.4 X10'3 (0-0.9); MONOCYTES % (AUTO) 8.7 % (2-12); NEUTROPHILS # (AUTO) 4.1 X10'3 (1.8-7.7); NEUTROPHILS % (AUTO) 79.5 % (42-75); PLATELET COUNT 360 X10'3 (140-440); RED BLOOD COUNT 2.96 X10'6 (4.20-5.60); RED CELL DISTRIBUTION WIDTH 15.3 % (11.5-14.5); WHITE BLOOD COUNT 5.1 X10'3 (4.5-11.0)
[2022-01-08 09:59] LABS: ALANINE AMINOTRANSFERASE 13 U/L (12-78); ALBUMIN 3.4 G/DL (3.4-5.0); ALBUMIN/GLOBULIN RATIO 0.9 (1.1-1.5); ALKALINE PHOSPHATASE 126 IU/L (46-116); ANION GAP 15 (8-16); ASPARTATE AMINO TRANSFERASE 18 U/L (10-37); BILIRUBIN,TOTAL 0.7 MG/DL (0.1-1.0); BLOOD UREA NITROGEN 39 MG/DL (7-18); BUN/CREATININE RATIO 22.8 (6.6-38.0); CALCIUM 9.8 MG/DL (8.5-10.1); CHLORIDE 100 MMOL/L (99-107); CREATININE 1.71 MG/DL (0.40-0.90); GLUCOSE 155 MG/DL (70-104); MAGNESIUM 2.1 MG/DL (1.5-2.4); POTASSIUM 4.3 MMOL/L (3.5-5.1); SODIUM 136 MMOL/L (135-145); TOTAL CARBON DIOXIDE 21.5 MMOL/L (24-32); TOTAL PROTEIN 7.4 G/DL (6.4-8.2); eGFR 28 ML/MIN
[2022-01-08] MEDS: morphine 4 MG/ML inj SYRINge IV PRN ×2 (10:06→16:54)
[2022-01-08] MEDS: diatr meglu/diatrizoate 30ml oral sol.-(3 dose) bottle PO SCH ×4 (10:06→13:18)
[2022-01-08] MEDS ORDERED: ondansetron/PF 4mg/2ml inj IV ONE ×2 (10:28→13:15)
--- NOTE | 2022-01-08 11:26 | NUR ---
RELIEVING RN FOR BREAK, PT IS RESTING QUIETLY ON BED, FAMILY AT BEDSIDE, 1ST DOSE OF GASTROVIEW GIVEN, PT TOLERATED WELL, NO N/V
[2022-01-08 14:49] LABS: CLARITY,URINE SLIGHTLY CLOUDY (Clear); COLOR,URINE YELLOW (Yellow); GLUCOSE, URINE NEGATIVE (Neg); KETONES,URINE NEGATIVE (Neg); LEUKOCYTE ESTERASE ,URINE LARGE (Neg); NITRITES, URINE NEGATIVE (Neg); OCCULT BLOOD,URINE NEGATIVE (Neg); PH,URINE 7.5 (4.8-8.0); PROTEIN,URINE NEGATIVE (Neg); UROBILINOGEN,URINE 0.2 E.U/dL (0.2-1.0)
[2022-01-08 14:53] LABS: UA COLLECTION TYPE FOLEY CATH
[2022-01-08 14:54] LABS: WBC,URINE 30-50 /HPF (0-4)
[2022-01-08 14:55] LABS: BACTERIA,URINE 1+ /HPF (Neg); RBC,URINE NONE SEEN /HPF (0-2); SQUAMOUS EPITHELIAL CELL,UR FEW /LPF (FEW); TRIPLE PHOSPHATE CRYST 1+ /HPF (NEGATIVE)
[2022-01-08 14:56] LABS: MUCUS STRANDS FEW /LPF (Neg); WBC CLUMPS,URINE FEW /HPF (NEGATIVE)
[2022-01-08] MEDS ORDERED: CRAN1CAP3 PO (16:29)
[2022-01-08] MEDS ORDERED: ONDA4TAB12 PO (16:29)
[2022-01-08] MEDS ORDERED: ACET-3068 PO (16:29)
[2022-01-08] MEDS ORDERED: DOCU250C16 PO (16:29)
[2022-01-08] MEDS ORDERED: [UNRECOGNIZED DRUG - CODE] PO (16:29)
[2022-01-08] MEDS ORDERED: TORS20TA41 PO (16:29)
[2022-01-08] MEDS ORDERED: morphine 2 MG/ML inj. syringe IV PRN (17:00)
[2022-01-08] MEDS ORDERED: mag hydrox/Alum hydrox/simeth 30ml oral suspension PO PRN (17:00)
[2022-01-08] MEDS ORDERED: magnesium Cl slow-release 64mg tablet PO PRN (17:00)
[2022-01-08] MEDS ORDERED: potassium Cl 40MEQ/1/2NS 520ml 520 ML IV PRN (17:00)
[2022-01-08] MEDS ORDERED: potassium Cl 20 mEq SR tablet PO PRN ×2 (17:00)
[2022-01-08] MEDS ORDERED: magnesium 4gm in 100ml NS 100 ML IV PRN (17:00)
[2022-01-08] MEDS ORDERED: magnesium hydroxide 30ml (MOM) UD suspension PO PRN (17:00)
[2022-01-08] MEDS ORDERED: ondansetron/PF 4mg/2ml inj IV PRN (17:00)
[2022-01-08] MEDS ORDERED: acetaminophen 325mg tablet PO PRN (17:00)
[2022-01-08] MEDS ORDERED: ondansetron 4mg rapidly disintigrating tab PO PRN (18:00)
[2022-01-08] MEDS ORDERED: nitroGLYCERIN 0.4mg SUBLingual tab SL PRN (18:00)
[2022-01-08] MEDS ORDERED: acetaminophen w/codeine (30MG) #3 tablet PO PRN (18:00)
[2022-01-08] MEDS ORDERED: polyethylene glycol 3350 17gm powd pack PO PRN (18:00)
[2022-01-08] MEDS: K and/or MAG REPLACEMENT MC SCH (18:54)
[2022-01-08] MEDS: normal saline 1000ml 1,000 ML IV SCH (18:54)
[2022-01-08] MEDS: heparin, porcine 5000 units/ml vial SQ SCH (19:59)
[2022-01-08] MEDS ORDERED: CRANBERRY PO SCH (20:00)
[2022-01-08] MEDS: docusate sod 250mg capsule PO SCH (20:00)
[2022-01-08] MEDS ORDERED: docusate sod 100mg capsule PO SCH (20:00)
[2022-01-08] MEDS: potassium chloride 10mEq ER tablet PO SCH (20:00)
[2022-01-08] MEDS ORDERED: ASCORBIC ACID PO SCH (20:00)
[2022-01-08] MEDS ORDERED: GLUCOSAMINE SULFATE PO SCH (20:00)
[2022-01-08] MEDS ORDERED: [UNRECOGNIZED DRUG - OTHER] PO SCH (20:00)
[2022-01-08] MEDS: atorvastatin 20mg tablet PO SCH (20:43)
--- NOTE | 2022-01-09 00:30 | NUR ---
Assumed care of patient.
--- NOTE | 2022-01-09 02:35 | NUR ---
Patient refusing new IV insertion at this time after CONCRETE SCULPTOR and RN attempted two times.
[2022-01-09] MEDS: normal saline 1000ml 1,000 ML IV SCH ×3 (03:00→21:10)
--- NOTE | 2022-01-09 07:08 | NUR ---
Report given to FLOWER Montano on the Surgical floor.
[2022-01-09 07:54] LABS: BASOPHILS # (AUTO) 0.1 X10'3 (0-0.2); BASOPHILS % (AUTO) 0.6 % (0-1); EOSINOPHILS % (AUTO) 0.1 % (0-6); HEMATOCRIT 27.1 % (35.0-45.0); HEMOGLOBIN 9.1 g/dl (12.0-16.0); LYMPHOCYTES # (AUTO) 0.4 X10'3 (1.1-4.8); LYMPHOCYTES % (AUTO) 3.3 % (21-51); MEAN CORPUSCULAR HEMOGLOBIN 35.1 PG (27.0-31.0); MEAN CORPUSCULAR HGB CONC 33.5 g/dL (33.0-36.5); MEAN CORPUSCULAR VOLUME 105.1 FL (78-98); MEAN PLATELET VOLUME 9.1 FL (7.4-10.4); NEUTROPHILS # (AUTO) 10.6 X10'3 (1.8-7.7); PLATELET COUNT 314 X10'3 (140-440); RED BLOOD COUNT 2.58 X10'6 (4.20-5.60); RED CELL DISTRIBUTION WIDTH 15.5 % (11.5-14.5); WHITE BLOOD COUNT 12.1 X10'3 (4.5-11.0)
[2022-01-09] MEDS: K and/or MAG REPLACEMENT MC SCH ×2 (08:00→20:00)
[2022-01-09] MEDS: potassium chloride 10mEq ER tablet PO SCH ×2 (08:00→20:00)
[2022-01-09] MEDS: folic acid 1mg tablet PO SCH (08:00)
[2022-01-09] MEDS: docusate sod 250mg capsule PO SCH ×2 (08:00→20:00)
[2022-01-09] MEDS: pantoprazole 40mg Tablet.DR PO SCH (08:00)
[2022-01-09 08:15] LABS: ALBUMIN 2.7 G/DL (3.4-5.0); ANION GAP 10 (8-16); BLOOD UREA NITROGEN 28 MG/DL (7-18); CALCIUM 8.9 MG/DL (8.5-10.1); CHLORIDE 111 MMOL/L (99-107); CREATININE 1.22 MG/DL (0.40-0.90); GLUCOSE 153 MG/DL (70-104); MAGNESIUM 2.3 MG/DL (1.5-2.4); POTASSIUM 3.5 MMOL/L (3.5-5.1); SODIUM 142 MMOL/L (135-145); TOTAL CARBON DIOXIDE 21.3 MMOL/L (24-32); eGFR 42 ML/MIN
[2022-01-09 10:00] VITALS: BP 146/57
[2022-01-09 10:45] VITALS: BP 127/51
[2022-01-09] MEDS: heparin, porcine 5000 units/ml vial SQ SCH ×2 (11:21→20:00)
[2022-01-09] MEDS: amiodarone 200mg tablet PO SCH (12:45)
[2022-01-09] MEDS: CefTRIAXone/D5W-Rocephin 1gm 50 ML IV SCH (14:02)
[2022-01-09 18:00] VITALS: BP 146/47
--- NOTE | 2022-01-09 18:31 | NUR ---
Problems reprioritized. Patient report given, questions answered & plan of care reviewed with RUBÉN CRENSHAW.
[2022-01-09] MEDS: atorvastatin 20mg tablet PO SCH (21:00)
[2022-01-09 22:00] VITALS: BP 158/68
[2022-01-09] MEDS: morphine 2 MG/ML inj. syringe IV PRN (23:03)
[2022-01-10] VITALS (18 sets, daily range): BP systolic 123–166; BP diastolic 51–72
[2022-01-10 06:44] LABS: BASOPHILS # (AUTO) 0.1 X10'3 (0-0.2); BASOPHILS % (AUTO) 0.6 % (0-1); EOSINOPHILS % (AUTO) 0.1 % (0-6); HEMATOCRIT 28.4 % (35.0-45.0); HEMOGLOBIN 9.3 g/dl (12.0-16.0); LYMPHOCYTES # (AUTO) 0.6 X10'3 (1.1-4.8); MEAN CORPUSCULAR HEMOGLOBIN 34.5 PG (27.0-31.0); MEAN CORPUSCULAR HGB CONC 32.6 g/dL (33.0-36.5); MEAN CORPUSCULAR VOLUME 105.9 FL (78-98); MEAN PLATELET VOLUME 9.1 FL (7.4-10.4); MONOCYTES # (AUTO) 0.8 X10'3 (0-0.9); MONOCYTES % (AUTO) 6.9 % (2-12); NEUTROPHILS # (AUTO) 10.2 X10'3 (1.8-7.7); NEUTROPHILS % (AUTO) 87.4 % (42-75); PLATELET COUNT 300 X10'3 (140-440); RED BLOOD COUNT 2.68 X10'6 (4.20-5.60); RED CELL DISTRIBUTION WIDTH 15.8 % (11.5-14.5); WHITE BLOOD COUNT 11.6 X10'3 (4.5-11.0)
[2022-01-10] MEDS: heparin, porcine 5000 units/ml vial SQ SCH ×2 (06:55→23:46)
[2022-01-10 07:09] LABS: ALBUMIN 2.6 G/DL (3.4-5.0); ANION GAP 9 (8-16); BLOOD UREA NITROGEN 24 MG/DL (7-18); BUN/CREATININE RATIO 21.6 (6.6-38.0); CALCIUM 9.3 MG/DL (8.5-10.1); CHLORIDE 118 MMOL/L (99-107); CREATININE 1.11 MG/DL (0.40-0.90); GLUCOSE 154 MG/DL (70-104); MAGNESIUM 2.8 MG/DL (1.5-2.4); POTASSIUM 3.7 MMOL/L (3.5-5.1); SODIUM 148 MMOL/L (135-145); TOTAL CARBON DIOXIDE 21.4 MMOL/L (24-32); eGFR 46 ML/MIN
[2022-01-10] MEDS: docusate sod 250mg capsule PO SCH ×2 (07:43→21:51)
[2022-01-10] MEDS: folic acid 1mg tablet PO SCH (07:44)
[2022-01-10] MEDS: K and/or MAG REPLACEMENT MC SCH ×2 (07:44→20:00)
[2022-01-10] MEDS: pantoprazole 40mg Tablet.DR PO SCH (07:44)
[2022-01-10] MEDS: potassium chloride 10mEq ER tablet PO SCH ×2 (07:44→21:51)
[2022-01-10] MEDS: normal saline 1000ml 1,000 ML IV SCH ×2 (08:15→20:35)
[2022-01-10] MEDS: CefTRIAXone/D5W-Rocephin 1gm 50 ML IV SCH (08:19)
[2022-01-10] MEDS: amiodarone 200mg tablet PO SCH (09:08)
[2022-01-10 09:30] LABS: PRE OP INR 1.1 INR; PRE OP PROTIME 11.4 SECONDS (9.0-12.0)
[2022-01-10] MEDS: morphine 2 MG/ML inj. syringe IV PRN (11:20)
[2022-01-10] MEDS ORDERED: HYDROmorphone/PF 0.2 MG/ML SYRINGE IV PRN ×2 (16:50)
[2022-01-10] MEDS ORDERED: labetalol 20mg/4ml (5mg/ml) syringe IV PRN (16:50)
[2022-01-10] MEDS ORDERED: acetaminophen 1,000mg/100ml IV 100 ML IV PRN (16:50)
[2022-01-10] MEDS ORDERED: morphine 2 MG/ML inj. syringe IV PRN (16:50)
[2022-01-10] MEDS ORDERED: hydrALAZINE 20mg/ml inj. IV PRN (16:50)
[2022-01-10] MEDS ORDERED: ringers solution, lacted 1,000 ML IV SCH (16:50)
[2022-01-10] MEDS ORDERED: morphine 4 MG/ML inj SYRINge IV PRN (16:50)
[2022-01-10] MEDS ORDERED: ondansetron/PF 4mg/2ml inj IV PRN (16:50)
[2022-01-10] MEDS ORDERED: proCHLORperazine 10 MG/2 ml inj IV PRN (16:50)
[2022-01-10] MEDS ORDERED: meperidine/PF 25mg/ml syringe IV PRN (16:50)
[2022-01-10] MEDS ORDERED: midazolam 1 mg/ML 2ml injection ONE (17:11)
[2022-01-10] MEDS ORDERED: fentaNYL /PF 50mcg/ml 5ml ampule ONE (17:15)
[2022-01-10] MEDS ORDERED: ceFOXitin 1000 MG inj ONE ×2 (17:37)
[2022-01-10] MEDS ORDERED: propofol inj 20 ML IV ONE (17:38)
[2022-01-10] MEDS ORDERED: rocuronium 10mg/ml inj IV ONE (17:38)
[2022-01-10] MEDS ORDERED: LIDOcaine 2% (20mg/ml) 5ml vial ONE (17:38)
--- NOTE | 2022-01-10 18:00 | NUR ---
Problems reprioritized. Patient report given, questions answered & plan of care reviewed with CL CRENSHAW.
[2022-01-10] MEDS ORDERED: BUPIVAcaine/PF 5 mg/ml 10ml ONE (18:11)
[2022-01-10] MEDS ORDERED: BUPIVACAINE liposomal/PF 13.3 MG/ML vial IM ONE (18:11)
[2022-01-10] MEDS ORDERED: 0.9 % SODIUM CHLORIDE 10 ML VIAL ONE (18:20)
[2022-01-10] MEDS ORDERED: ondansetron/PF 4mg/2ml inj ONE (18:20)
[2022-01-10] MEDS ORDERED: ePHEDrine 50MG/ML INJ. ONE (18:20)
[2022-01-10] MEDS ORDERED: dexamethasone sod phosphate 4mg/ml inj. ONE (18:20)
[2022-01-10] MEDS ORDERED: neostigmine methylsulfate 1 MG/ML 10ml vial ONE (18:44)
--- NOTE | 2022-01-10 18:57 | NUR ---
Received from OR via [facility], accompanied by Anesthesiologist DR SOUZA and report given by Anesthesiologist AND PATIENT CARE PROVIDER. PT DROWSY, DENIES PAIN, ABDOMINAL [place] DRSG CDI, COLOSTOMY W/SCANT AMT OF DRAINAGE IN DRAINAGE BAG, STOMA PINK. DIXON CATHETER TO GRAVITY DRAINAGE W/ YELLOW SLIGHTLY CLOUDY URINE IN DRAINAGE BAG. Addendum: 01/10/22 at 1933 by Michelle Shaw RN Amended: Links added.
--- NOTE | 2022-01-10 19:23 | NUR ---
Patient in room TRAY 348. I have received report from Charmaine CRENSHAW and had the opportunity to ask questions and assume patient care.
--- NOTE | 2022-01-10 20:07 | NUR ---
Report called to receiving nurse. PT REMAINS COMFORTABLE AND DENIES PAIN. Transferred via BED, NO Belongings. BLL, CALL LIGHT GIVEN, SIDE RAILS UP X 2, NURSES AID AT BEDSIDE TO RECEIVE PT, PTS DAUGHTER PRESENT. Special Issues communicated to receiving nurse. YES. Addendum: 01/10/22 at 2020 by Michelle Shaw RN Amended: Links added.
--- NOTE | 2022-01-10 20:30 | NUR ---
Received report from Michelle. patient pleasant A&O x4. denies pain. brace to left knee, daughter stated that patient had had her metal plate in her leg break. Midline incision CDI. Colostomy moved x2 large amount of soft liquidy stool. Colostomy bag changed. will continue to monitor
[2022-01-10] MEDS: atorvastatin 20mg tablet PO SCH (21:51)
[2022-01-11] VITALS: BP 152/57
[2022-01-11] MEDS: normal saline 1000ml 1,000 ML IV SCH ×2 (05:46→15:00)
[2022-01-11 06:00] VITALS: BP 123/59
--- NOTE | 2022-01-11 06:20 | NUR ---
Problems reprioritized. Patient report given, questions answered & plan of care reviewed with J Carlos CRENSHAW.
[2022-01-11 07:38] LABS: BASOPHILS % (AUTO) 0.3 % (0-1); EOSINOPHILS % (AUTO) 0 % (0-6); HEMATOCRIT 25.1 % (35.0-45.0); HEMOGLOBIN 8.3 g/dl (12.0-16.0); LYMPHOCYTES # (AUTO) 0.5 X10'3 (1.1-4.8); LYMPHOCYTES % (AUTO) 3.9 % (21-51); MEAN CORPUSCULAR HEMOGLOBIN 34.8 PG (27.0-31.0); MEAN CORPUSCULAR HGB CONC 33.1 g/dL (33.0-36.5); MEAN CORPUSCULAR VOLUME 105.3 FL (78-98); MEAN PLATELET VOLUME 9.3 FL (7.4-10.4); MONOCYTES # (AUTO) 1.1 X10'3 (0-0.9); NEUTROPHILS # (AUTO) 10.8 X10'3 (1.8-7.7); NEUTROPHILS % (AUTO) 86.8 % (42-75); PLATELET COUNT 263 X10'3 (140-440); RED BLOOD COUNT 2.39 X10'6 (4.20-5.60); RED CELL DISTRIBUTION WIDTH 15.6 % (11.5-14.5); WHITE BLOOD COUNT 12.5 X10'3 (4.5-11.0)
[2022-01-11 08:00] LABS: ALBUMIN 2.1 G/DL (3.4-5.0); ANION GAP 8 (8-16); BLOOD UREA NITROGEN 20 MG/DL (7-18); BUN/CREATININE RATIO 19.2 (6.6-38.0); CALCIUM 8.3 MG/DL (8.5-10.1); CHLORIDE 112 MMOL/L (99-107); CREATININE 1.04 MG/DL (0.40-0.90); GLUCOSE 140 MG/DL (70-104); MAGNESIUM 2.3 MG/DL (1.5-2.4); POTASSIUM 3.7 MMOL/L (3.5-5.1); SODIUM 141 MMOL/L (135-145); TOTAL CARBON DIOXIDE 21.1 MMOL/L (24-32); eGFR 50 ML/MIN
[2022-01-11] MEDS: K and/or MAG REPLACEMENT MC SCH (08:00)
[2022-01-11] MEDS: docusate sod 250mg capsule PO SCH (08:19)
[2022-01-11] MEDS: folic acid 1mg tablet PO SCH (08:19)
[2022-01-11] MEDS: pantoprazole 40mg Tablet.DR PO SCH (08:19)
[2022-01-11] MEDS: potassium chloride 10mEq ER tablet PO SCH (08:19)
[2022-01-11] MEDS: amiodarone 200mg tablet PO SCH (08:20)
[2022-01-11] MEDS: heparin, porcine 5000 units/ml vial SQ SCH (08:20)
[2022-01-11] MEDS: CefTRIAXone/D5W-Rocephin 1gm 50 ML IV SCH (08:20)
[2022-01-11 10:00] VITALS: BP 110/52
[2022-01-11] MEDS ORDERED: PRAV80TA3 PO (13:01)
[2022-01-11] MEDS ORDERED: CIPR-259 PO ×2 (16:04)
[2022-01-13] MEDS ORDERED: CIPR500T5 (23:22)
[2022-01-13] MEDS ORDERED: PRAV80TA3 PO (23:23)
== END 2022-01-11 17:47 | disposition home or self-care (01) | DRG 356 ==
LOC: ER 08:33 → ED HOLD 17:00 → SUR 3N 01-09 08:01
PROVIDERS: ADMIT Family Medicine; ATTEND Family Medicine
PROC: 0D9670Z Drainage of Stomach with Drainage Device, Via Natural or Artificial Opening (ICD-10-PCS; 2022-01-08)
PROC: 0DQV0ZZ Repair Mesentery, Open Approach (ICD-10-PCS; principal; 2022-01-10 17:01)
DX: K56.600 Partial intestinal obstruction, unspecified as to cause (principal); N17.0 Acute kidney failure with tubular necrosis; I13.0 Hypertensive heart and chronic kidney disease with heart failure and stage 1 through stage 4 chronic kidney disease, or unspecified chronic kidney disease; N39.0 Urinary tract infection, site not specified; I48.11 Longstanding persistent atrial fibrillation; E78.00 Pure hypercholesterolemia, unspecified; I25.10 Atherosclerotic heart disease of native coronary artery without angina pectoris; I50.9 Heart failure, unspecified; F32.A Depression, unspecified; M25.562 Pain in left knee; Z60.2 Problems related to living alone; Z96.653 Presence of artificial knee joint, bilateral; B96.4 Proteus (mirabilis) (morganii) as the cause of diseases classified elsewhere; K46.9 Unspecified abdominal hernia without obstruction or gangrene; N18.9 Chronic kidney disease, unspecified; Z82.49 Family history of ischemic heart disease and other diseases of the circulatory system; Z85.3 Personal history of malignant neoplasm of breast; Z87.440 Personal history of urinary (tract) infections; Z90.49 Acquired absence of other specified parts of digestive tract; Z90.710 Acquired absence of both cervix and uterus; Z93.3 Colostomy status; Z98.1 Arthrodesis status; Z88.2 Allergy status to sulfonamides; Z88.8 Allergy status to other drugs, medicaments and biological substances; Z82.61 Family history of arthritis; Z79.899 Other long term (current) drug therapy
CPT/HCPCS: 36415; 71045; 74176; 80048; 80053; 81001; 82948; 83605; 83735; 84145; 85025; 85610; 85730; 87040; 87077; 87081; 87088; 87186; 93005; 96374; 96375; 96376; 97161; 97530; 99285; A4421; A4615; A4618; A6253; A7000; C9290; G0378; J0694; J0696; J1100; J1644; J2250; J2270; J2405; J2704; J2710; J2765; J3010; J3490; J7030; J7040; J7120; Q9963

== ENCOUNTER 2022-06-01 19:45 | Emergency (ER) | payer MEDICARE ==
[~2022-06-01] VITALS: Ht 157.5 cm; Wt 70.5 kg
[~2022-06-01 19:45] MED LIST changes: +ACET-3068 PO; -CHOL10006 PO; -CITA-311 PO; -CRAN450T4 PO; +DOCU250C16 PO; -FURO-150 PO; -FURO80TA3 PO; -GLUC-95 PO; -MAGN500C4 PO; -OMEP40CA21 PO; -OXYC-148 PO; -POTA10CA44 PO; +POTA10CA45 PO; +TORS20TA41 PO; -TRAZ-251 PO; -ZINC50TA67 PO; +[UNRECOGNIZED DRUG - CODE] PO
[2022-06-01 20:17] VITALS: BP 107/64
[2022-06-01 21:24] LABS: BASOPHILS % (AUTO) 1.1 % (0-1); EOSINOPHILS # (AUTO) 0.1 X10'3 (0-0.9); EOSINOPHILS % (AUTO) 1.5 % (0-6); HEMATOCRIT 29.2 % (35.0-45.0); LYMPHOCYTES # (AUTO) 0.9 X10'3 (1.1-4.8); MEAN CORPUSCULAR HEMOGLOBIN 37.1 PG (27.0-31.0); MEAN CORPUSCULAR HGB CONC 34.1 g/dL (33.0-36.5); MEAN CORPUSCULAR VOLUME 108.6 FL (78-98); MEAN PLATELET VOLUME 9.4 FL (7.4-10.4); MONOCYTES # (AUTO) 0.6 X10'3 (0-0.9); MONOCYTES % (AUTO) 12.7 % (2-12); NEUTROPHILS # (AUTO) 2.9 X10'3 (1.8-7.7); NEUTROPHILS % (AUTO) 64.7 % (42-75); PLATELET COUNT 263 X10'3 (140-440); RED BLOOD COUNT 2.69 X10'6 (4.20-5.60); RED CELL DISTRIBUTION WIDTH 16.6 % (11.5-14.5); WHITE BLOOD COUNT 4.5 X10'3 (4.5-11.0)
[2022-06-01 21:34] LABS: ALANINE AMINOTRANSFERASE 11 U/L (12-78); ALBUMIN 3.7 G/DL (3.4-5.0); ALBUMIN/GLOBULIN RATIO 1.2 (1.1-1.5); ALKALINE PHOSPHATASE 140 IU/L (46-116); ANION GAP 6 (8-16); ASPARTATE AMINO TRANSFERASE 16 U/L (10-37); BILIRUBIN,TOTAL 0.6 MG/DL (0.1-1.0); BLOOD UREA NITROGEN 24 MG/DL (7-18); BUN/CREATININE RATIO 16.7 (10.0-20.0); CALCIUM 8.8 MG/DL (8.5-10.1); CHLORIDE 93 MMOL/L (99-107); CREATININE 1.44 MG/DL (0.40-0.90); GLUCOSE 126 MG/DL (70-104); LIPASE < 50 U/L (73-393); POTASSIUM 4.6 MMOL/L (3.5-5.1); SODIUM 126 MMOL/L (135-145); TOTAL CARBON DIOXIDE 27.2 MMOL/L (24-32); TOTAL PROTEIN 6.9 G/DL (6.4-8.2); eGFR 34 ML/MIN
[2022-06-01 21:40] LABS: CLARITY,URINE CLOUDY (Clear); COLOR,URINE YELLOW (Yellow); GLUCOSE, URINE NEGATIVE (Neg); KETONES,URINE NEGATIVE (Neg); LEUKOCYTE ESTERASE ,URINE MODERATE (Neg); NITRITES, URINE NEGATIVE (Neg); OCCULT BLOOD,URINE TRACE-INTACT (Neg); PROTEIN,URINE NEGATIVE (Neg); UROBILINOGEN,URINE 0.2 E.U/dL (0.2-1.0)
[2022-06-01 21:56] LABS: WBC,URINE 50-100 /HPF (0-4)
[2022-06-01 21:58] LABS: AMORPHOUS URATES 1+; BACTERIA,URINE 4+ /HPF (Neg); CAL OXALATE CRYSTALS 1+ /HPF (NEGATIVE); MUCUS STRANDS FEW /LPF (Neg); RBC,URINE NONE SEEN /HPF (0-2); SQUAMOUS EPITHELIAL CELL,UR FEW /LPF (FEW); WBC CLUMPS,URINE MODERATE /HPF (NEGATIVE)
[2022-06-01 22:04] LABS: UA COLLECTION TYPE STRAIGHT CATH
[2022-06-01] MEDS ORDERED: cephalexin 500mg capsule PO ONE (22:20)
[2022-06-01] MEDS ORDERED: CEPH500C2 PO ×2 (22:20)
[2022-06-01] MEDS ORDERED: ondansetron 4mg rapidly disintigrating tab PO ONE (22:55)
[2022-06-03] MEDS ORDERED: CRAN500T4 PO (17:36)
[2022-06-03] MEDS ORDERED: VENL75CA61 PO (17:36)
[2022-06-03] MEDS ORDERED: ACET-2319 PO (17:36)
[2022-06-03] MEDS ORDERED: CEPH-585 PO (17:38)
[2022-06-05] MEDS ORDERED: COR3.125T PO (08:21)
[2022-06-05] MEDS ORDERED: LOSA25TA41 PO (08:21)
[2022-06-05] MEDS ORDERED: SPIR25TA PO (08:21)
[2022-06-05] MEDS ORDERED: LEVO-65 PO (08:21)
[2022-06-05] MEDS ORDERED: FURO40TA4 PO (08:21)
== END 2022-06-01 23:54 | disposition home or self-care (01) ==
LOC: ER 19:45
DX: N39.0 Urinary tract infection, site not specified (principal); E87.1 Hypo-osmolality and hyponatremia; E78.00 Pure hypercholesterolemia, unspecified; D64.9 Anemia, unspecified; I13.10 Hypertensive heart and chronic kidney disease without heart failure, with stage 1 through stage 4 chronic kidney disease, or unspecified chronic kidney disease; E11.22 Type 2 diabetes mellitus with diabetic chronic kidney disease; N18.9 Chronic kidney disease, unspecified; F32.A Depression, unspecified; Z88.2 Allergy status to sulfonamides; Z88.8 Allergy status to other drugs, medicaments and biological substances; Z79.899 Other long term (current) drug therapy; Z88.5 Allergy status to narcotic agent; Z79.1 Long term (current) use of non-steroidal anti-inflammatories (NSAID); Z79.2 Long term (current) use of antibiotics
CPT/HCPCS: 36415; 51702; 80053; 81001; 83690; 85025; 87077; 87088; 87186; 99284; A4338; A4340

== ENCOUNTER 2022-12-17 17:22 | Inpatient (IN) | payer MEDICARE, MEDICAID ==
[~2022-12-17] VITALS: Ht 157.5 cm; Wt 79.5 kg
[~2022-12-17 17:22] MED LIST changes: -ACET-3068 PO; +ACET-3414 PO; +AMI200T PO; -AMIO200T27 PO; +CARV3.123 PO; +CRAN450T4 PO; -DOCU250C16 PO; +FERR325T28 PO; -OMEP20CA16 PO; -ONDA4TAB12 PO; +PANT40TA54 PO; -POLY119P2 PO; +POLY17PO10 PO; +POTA-206 PO; -POTA10CA45 PO; +TORS20TA3 PO; -TORS20TA41 PO
--- NOTE | 2022-12-17 17:38 | NUR ---
Spoke with daughter. Requests no morphine. States it takes patient a day and half to get her mind back. "Shuts her kidneys down."
[2022-12-17 18:12] LABS: BILIRUBIN,URINE NEGATIVE (Neg); CLARITY,URINE CLEAR (Clear); COLOR,URINE YELLOW (Yellow); GLUCOSE, URINE NEGATIVE (Neg); KETONES,URINE NEGATIVE (Neg); LEUKOCYTE ESTERASE ,URINE NEGATIVE (Neg); NITRITES, URINE NEGATIVE (Neg); OCCULT BLOOD,URINE NEGATIVE (Neg); PH,URINE 5.5 (4.8-8.0); PROTEIN,URINE NEGATIVE (Neg); UROBILINOGEN,URINE 0.2 E.U/dL (0.2-1.0)
[2022-12-17 18:13] LABS: UA COLLECTION TYPE STRAIGHT CATH
[2022-12-17 18:39] LABS: BASOPHILS % (AUTO) 0.6 % (0-1); EOSINOPHILS # (AUTO) 0.2 X10'3 (0-0.9); EOSINOPHILS % (AUTO) 3.3 % (0-6); HEMATOCRIT 25.2 % (35.0-45.0); HEMOGLOBIN 8.9 g/dl (12.0-16.0); LYMPHOCYTES # (AUTO) 0.5 X10'3 (1.1-4.8); MEAN CORPUSCULAR HEMOGLOBIN 38.7 PG (27.0-31.0); MEAN CORPUSCULAR HGB CONC 35.2 g/dL (33.0-36.5); MEAN CORPUSCULAR VOLUME 110.1 FL (78-98); MEAN PLATELET VOLUME 8.9 FL (7.4-10.4); MONOCYTES # (AUTO) 0.7 X10'3 (0-0.9); MONOCYTES % (AUTO) 11.9 % (2-12); NEUTROPHILS # (AUTO) 4.6 X10'3 (1.8-7.7); NEUTROPHILS % (AUTO) 76.2 % (42-75); PLATELET COUNT 273 X10'3 (140-440); RED BLOOD COUNT 2.29 X10'6 (4.20-5.60); RED CELL DISTRIBUTION WIDTH 16.7 % (11.5-14.5)
--- NOTE | 2022-12-17 18:45 | NUR ---
received report from [facility].
[2022-12-17 18:56] LABS: ALANINE AMINOTRANSFERASE 13 U/L (12-78); ALBUMIN/GLOBULIN RATIO 0.9 (1.1-1.5); ALKALINE PHOSPHATASE 85 IU/L (46-116); ANION GAP 6 (8-16); ASPARTATE AMINO TRANSFERASE 14 U/L (10-37); BILIRUBIN,TOTAL 0.9 MG/DL (0.1-1.0); BLOOD UREA NITROGEN 32 MG/DL (7-18); BUN/CREATININE RATIO 24.8 (10.0-20.0); CALCIUM 9.1 MG/DL (8.5-10.1); CHLORIDE 95 MMOL/L (99-107); CREATININE 1.29 MG/DL (0.40-0.90); GLUCOSE 116 MG/DL (70-104); POTASSIUM 4.1 MMOL/L (3.5-5.1); SODIUM 128 MMOL/L (135-145); TOTAL CARBON DIOXIDE 26.6 MMOL/L (24-32); TOTAL PROTEIN 6.2 G/DL (6.4-8.2); eCRCL 24 ML/MIN; eGFR 39 ML/MIN
[2022-12-17 19:02] LABS: LIPASE 8 U/L (16-77)
[2022-12-17] MEDS ORDERED: normal saline 1000ml 1,000 ML IV ONE (20:15)
[2022-12-17] MEDS ORDERED: ondansetron/PF 4mg/2ml inj IV ONE (20:20)
[2022-12-17 20:56] LABS: TOTAL CELLS COUNTED 100
[2022-12-17 20:57] LABS: ACANTHOCYTES 1+; ANISOCYTOSIS 1+; ELLIPTOCYTES FEW; LARGE PLATELETS FEW; PLATELET ESTIMATE NORMAL; POIKILOCYTOSIS 1+; SCHISTOCYTES FEW
[2022-12-17] MEDS ORDERED: temazepam 15mg capsule PO PRN (21:00)
[2022-12-17] MEDS ORDERED: fentaNYL/PF 50MCG/1 ML 2ML syringe IV ONE (22:00)
[2022-12-17] MEDS ORDERED: dextrose 5%-1/2 normal saline 1,000 ML IV SCH (22:25)
[2022-12-17] MEDS ORDERED: mag hydrox/Alum hydrox/simeth 30ml oral suspension PO PRN (22:25)
[2022-12-17] MEDS ORDERED: magnesium hydroxide 30ml (MOM) UD suspension PO PRN (22:25)
[2022-12-17] MEDS ORDERED: ondansetron 4mg rapidly disintigrating tab PO PRN (22:25)
[2022-12-17] MEDS ORDERED: diphenhydrAMINE 50 mg/ml inj IV PRN (22:25)
[2022-12-17] MEDS ORDERED: bisacodyl 10mg suppository rectal RC PRN (22:25)
[2022-12-17] MEDS ORDERED: acetaminophen 325mg tablet PO PRN ×2 (22:25)
[2022-12-17] MEDS ORDERED: diphenhydrAMINE 25mg capsule PO PRN (22:25)
[2022-12-17] MEDS ORDERED: ondansetron/PF 4mg/2ml inj IV PRN (22:25)
[2022-12-17] MEDS ORDERED: acetaminophen 650mg rectal suppository RC PRN (22:25)
[2022-12-17] MEDS: pantoprazole 40mg IV 80 MG in normal saline 100ml IV soln 100 ML IV ONE ×2 (22:30→23:18)
[2022-12-17 22:54] LABS: MAGNESIUM 2.2 MG/DL (1.5-2.4); PHOSPHORUS 3.6 MG/DL (2.3-4.5); PRO BRAIN NATRIURETIC PEPTIDE 2889 PG/ML (0-450)
[2022-12-17] MEDS ORDERED: pantoprazole 40MG/NS 100ML BAG 100 ML IV ONE ×2 (23:00→23:15)
[2022-12-17] MEDS: normal saline 1000ml 1,000 ML IV SCH ×2 (23:08→23:52)
[2022-12-17 23:43] LABS: APTT 27 SECONDS (22-32); INR 1.1 INR; PROTHROMBIN TIME 11.4 SECONDS (9.0-12.0)
--- NOTE | 2022-12-17 23:44 | NUR ---
Received report from Er Nurse Keisha. Patient to follow shortly.
--- NOTE | 2022-12-17 23:45 | NUR ---
NG placed right nare. pt tolerated well. positive bowel sound. gastric content noted. awaiting KUB.
[2022-12-18 00:20] VITALS: RESP 18; O2SAT 96
[2022-12-18 00:30] VITALS: BP 119/51; PULSE 61; TEMP 99; O2SAT 96
--- NOTE | 2022-12-18 01:10 | NUR ---
Patient arrived to floor via gurney. A&Ox4, in no obvious distress at this time. Transferred to bed using slide board and 2 Rn skin check completed and VS initiated. Addendum: 12/18/22 at 0525 by Catia Robertson RN Arrived to floor ar 0010
[2022-12-18 04:00] VITALS: BP 102/52; PULSE 62; RESP 13; TEMP 98.3; O2SAT 97
[2022-12-18 06:00] VITALS: BP 137/56; PULSE 84; RESP 18; TEMP 98.1; O2SAT 99
--- NOTE | 2022-12-18 06:40 | NUR ---
Patient in room PCU 3028. I have received report from mery loera and had the opportunity to ask questions and assume patient care.
[2022-12-18 08:00] VITALS: RESP 18; O2SAT 95
[2022-12-18] MEDS ORDERED: docusate sod 100mg capsule PO SCH (08:00)
[2022-12-18 08:49] LABS: BASOPHILS % (AUTO) 0.7 % (0-1); EOSINOPHILS # (AUTO) 0.2 X10'3 (0-0.9); EOSINOPHILS % (AUTO) 4.8 % (0-6); LYMPHOCYTES # (AUTO) 0.4 X10'3 (1.1-4.8); LYMPHOCYTES % (AUTO) 11.8 % (21-51); MEAN CORPUSCULAR HEMOGLOBIN 38.4 PG (27.0-31.0); MEAN CORPUSCULAR HGB CONC 34.8 g/dL (33.0-36.5); MEAN CORPUSCULAR VOLUME 110.4 FL (78-98); MEAN PLATELET VOLUME 8.9 FL (7.4-10.4); MONOCYTES # (AUTO) 0.5 X10'3 (0-0.9); MONOCYTES % (AUTO) 12.9 % (2-12); NEUTROPHILS # (AUTO) 2.5 X10'3 (1.8-7.7); NEUTROPHILS % (AUTO) 69.8 % (42-75); PLATELET COUNT 253 X10'3 (140-440); RED BLOOD COUNT 2.08 X10'6 (4.20-5.60); RED CELL DISTRIBUTION WIDTH 16.8 % (11.5-14.5); WHITE BLOOD COUNT 3.5 X10'3 (4.5-11.0)
[2022-12-18 09:15] LABS: ALANINE AMINOTRANSFERASE 12 U/L (12-78); ALBUMIN 2.6 G/DL (3.4-5.0); ALBUMIN/GLOBULIN RATIO 0.9 (1.1-1.5); ALKALINE PHOSPHATASE 76 IU/L (46-116); ANION GAP 6 (8-16); ASPARTATE AMINO TRANSFERASE 13 U/L (10-37); BILIRUBIN,TOTAL 0.7 MG/DL (0.1-1.0); BLOOD UREA NITROGEN 26 MG/DL (7-18); BUN/CREATININE RATIO 24.5 (10.0-20.0); CALCIUM 8.6 MG/DL (8.5-10.1); CHLORIDE 103 MMOL/L (99-107); CREATININE 1.06 MG/DL (0.40-0.90); GLUCOSE 90 MG/DL (70-104); POTASSIUM 3.9 MMOL/L (3.5-5.1); SODIUM 134 MMOL/L (135-145); TOTAL CARBON DIOXIDE 24.6 MMOL/L (24-32); TOTAL PROTEIN 5.5 G/DL (6.4-8.2); eCRCL 29 ML/MIN; eGFR 49 ML/MIN
[2022-12-18] MEDS ORDERED: TORS20TA3 PO (10:51)
--- NOTE | 2022-12-18 11:09 | NUR ---
NG tube DC at 11:05. Patient tolerated well.
--- NOTE | 2022-12-18 12:13 | NUR ---
Patient provided follow-up and medication instructions. Provided an educational sheet for small bowel obstruction. Patient's IV DC, cannula intact. All patient belongings sent home. Patient DC at 1210.
--- NOTE | 2022-12-18 13:15 | NUR ---
The following was taken from the patients H&P: This is an 87 year old female who presents to ED for generalized abdominal pain, accompanied with nausea and vomiting. History of atrial fibrillation, CAD, CHF, high cholesterol, hypertension, valve insufficiency, bowel obstruction, anemia, CKD, UTI, breast cancer, and depression. Pt. lives in an assisted care facility. Pt. is a nonsmoker, does not drink alcohol, or use illicit drugs. Her most recent lab shows: WBC 6.0, HGB 8.9, BUN 32, BG 116, and albumin 3.0. Abdomen/Pelvis CT impression: post-surgical changed from bowel resection and left lower quadrant colostomy. Similar multiple dilated loops of small bowel measuring up to 4.8cm. Similar in appearance to 11/17/22. This could be a partial mechanical obstruction or chronic ileus. The Pt. was admitted for the management of generalized abdominal pain. Wound care in for skin assessment of buttock per nursing consult request. The pt. was found lying in bed no apparent acute distress. Greeted and explained the intent. She appears to be A/O x3 and agreeable to care. Both heels soft and pink. The left leg has a removable brace in place from ankle to thigh. Removed this brace, skin underneath brace pink, firm, and dry. The brace was placed back on left leg. Pt. reports that Pt. needs this brace even though Pt. does not walk anymore because it helps with knee pain. Groin, pannus, and breast folds areas are dry and pink with no odor. Her sacrococcygeal area has red and blanching skin with small moist red open area of skin L of buttock. Borderfoam placed as a preventive measure. LLQ colostomy, secured, intact, dry, and clean with minimal amount of brown effluent material in collection bag. The remainder of her skin assessment was unremarkable. Wound care preformed. Bed left in the lowest position, call light/personal items in reach. Report given to primary nurse. Wound care will continue to follow Pt. due to pt. at risk for skin breakdown.
== END 2022-12-18 12:10 | disposition home health service (06) | DRG 392 ==
LOC: ER 17:23 → ED HOLD 22:27 → PCU 3S 23:50
PROVIDERS: ADMIT Family Medicine; ATTEND Internal Medicine
PROC: 0D9670Z Drainage of Stomach with Drainage Device, Via Natural or Artificial Opening (ICD-10-PCS; principal; 2022-12-17)
DX: A05.9 Bacterial foodborne intoxication, unspecified (principal); K56.600 Partial intestinal obstruction, unspecified as to cause; N17.9 Acute kidney failure, unspecified; E87.1 Hypo-osmolality and hyponatremia; I13.0 Hypertensive heart and chronic kidney disease with heart failure and stage 1 through stage 4 chronic kidney disease, or unspecified chronic kidney disease; I50.9 Heart failure, unspecified; E86.1 Hypovolemia; F32.A Depression, unspecified; E78.00 Pure hypercholesterolemia, unspecified; N18.30 Chronic kidney disease, stage 3 unspecified; D64.9 Anemia, unspecified; I25.10 Atherosclerotic heart disease of native coronary artery without angina pectoris; I48.91 Unspecified atrial fibrillation; Z88.2 Allergy status to sulfonamides; Z79.899 Other long term (current) drug therapy; Z88.5 Allergy status to narcotic agent; Z79.01 Long term (current) use of anticoagulants; Z85.3 Personal history of malignant neoplasm of breast; Z90.710 Acquired absence of both cervix and uterus; Z93.3 Colostomy status; Z95.0 Presence of cardiac pacemaker
CPT/HCPCS: 36415; 74018; 74176; 80053; 81003; 82948; 83690; 83735; 83880; 84100; 84145; 85007; 85025; 85610; 85730; 87081; 96374; 99285; A4353; A6212; C9113; G0378; J2405; J3010; J3490; J7030

== ENCOUNTER 2023-01-24 22:35 | Inpatient (IN) | payer MEDICARE, MEDICAID ==
[~2023-01-24] VITALS: Ht 160 cm; Wt 70.0 kg
[2023-01-24 22:42] VITALS: TEMP 98.3
--- NOTE | 2023-01-24 23:26 | NUR ---
I have reviewed and agree with assessments performed and documented by (BETH Bear)
[2023-01-24] MEDS: diatr meglu/diatrizoate 30ml oral sol.-(3 dose) bottle PO SCH (23:40)
[2023-01-24] MEDS ORDERED: normal saline 1000ML IV soln IVB ONE (23:40)
--- NOTE | 2023-01-24 23:51 | NUR ---
Patient vomiting, MD aware. Oral contrast for CT cancelled. Orders for antiemetic received by .
[2023-01-24] MEDS ORDERED: ondansetron/PF 4mg/2ml inj IV ONE (23:55)
[2023-01-24 23:58] LABS: BASOPHILS # (AUTO) 0.1 X10'3 (0-0.2); EOSINOPHILS # (AUTO) 0.2 X10'3 (0-0.9); EOSINOPHILS % (AUTO) 1.8 % (0-6); HEMOGLOBIN 9.7 g/dl (12.0-16.0); LYMPHOCYTES # (AUTO) 0.3 X10'3 (1.1-4.8); LYMPHOCYTES % (AUTO) 2.4 % (21-51); MEAN CORPUSCULAR HEMOGLOBIN 38.7 PG (27.0-31.0); MEAN CORPUSCULAR HGB CONC 34.8 g/dL (33.0-36.5); MEAN CORPUSCULAR VOLUME 111.1 FL (78-98); MEAN PLATELET VOLUME 9.5 FL (7.4-10.4); MONOCYTES # (AUTO) 0.9 X10'3 (0-0.9); MONOCYTES % (AUTO) 8.3 % (2-12); NEUTROPHILS # (AUTO) 9.6 X10'3 (1.8-7.7); NEUTROPHILS % (AUTO) 86.5 % (42-75); PLATELET COUNT 298 X10'3 (140-440); RED BLOOD COUNT 2.52 X10'6 (4.20-5.60); RED CELL DISTRIBUTION WIDTH 18.2 % (11.5-14.5); WHITE BLOOD COUNT 11.1 X10'3 (4.5-11.0)
[2023-01-25] MEDS: diatr meglu/diatrizoate 30ml oral sol.-(3 dose) bottle PO SCH ×2 (00:25→01:10)
[2023-01-25 00:33] LABS: ALANINE AMINOTRANSFERASE 9 U/L (12-78); ALBUMIN 3.7 G/DL (3.4-5.0); ALKALINE PHOSPHATASE 95 IU/L (46-116); ANION GAP 9 (8-16); ASPARTATE AMINO TRANSFERASE 14 U/L (10-37); BLOOD UREA NITROGEN 30 MG/DL (7-18); BUN/CREATININE RATIO 20.5 (10.0-20.0); CALCIUM 9.4 MG/DL (8.5-10.1); CHLORIDE 99 MMOL/L (99-107); CREATININE 1.46 MG/DL (0.40-0.90); GLUCOSE 157 MG/DL (70-104); LIPASE 10 U/L (16-77); POTASSIUM 3.8 MMOL/L (3.5-5.1); SODIUM 133 MMOL/L (135-145); TOTAL CARBON DIOXIDE 25.5 MMOL/L (24-32); TOTAL PROTEIN 7.4 G/DL (6.4-8.2); eCRCL 22 ML/MIN; eGFR 34 ML/MIN
[2023-01-25 01:27] LABS: ANISOCYTOSIS 2+; PLATELET ESTIMATE NORMAL
[2023-01-25 01:36] LABS: TOTAL CELLS COUNTED 100
[2023-01-25] MEDS ORDERED: magnesium hydroxide 30ml (MOM) UD suspension PO PRN (02:50)
[2023-01-25] MEDS ORDERED: magnesium 2GM in 50ml NS 50 ML IV PRN (02:50)
[2023-01-25] MEDS ORDERED: potassium Cl 40MEQ/1/2NS 520ml 520 ML IV PRN (02:50)
[2023-01-25] MEDS ORDERED: magnesium 4gm in 100ml NS 100 ML IV PRN (02:50)
[2023-01-25] MEDS ORDERED: ondansetron/PF 4mg/2ml inj IV PRN (02:50)
[2023-01-25] MEDS ORDERED: acetaminophen 325mg tablet PO PRN (02:50)
[2023-01-25] MEDS ORDERED: mag hydrox/Alum hydrox/simeth 30ml oral suspension PO PRN (02:50)
[2023-01-25] MEDS: normal saline 1000ml 1,000 ML IV SCH ×2 (03:37→12:50)
[2023-01-25 04:13] LABS: BILIRUBIN,URINE NEGATIVE (Neg); CLARITY,URINE SLIGHTLY CLOUDY (Clear); COLOR,URINE YELLOW (Yellow); GLUCOSE, URINE NEGATIVE (Neg); KETONES,URINE NEGATIVE (Neg); LEUKOCYTE ESTERASE ,URINE NEGATIVE (Neg); NITRITES, URINE NEGATIVE (Neg); OCCULT BLOOD,URINE NEGATIVE (Neg); PROTEIN,URINE NEGATIVE (Neg); UROBILINOGEN,URINE 0.2 E.U/dL (0.2-1.0)
[2023-01-25 05:06] LABS: UA COLLECTION TYPE STRAIGHT CATH
[2023-01-25 05:07] LABS: RBC,URINE NONE SEEN /HPF (0-2); SQUAMOUS EPITHELIAL CELL,UR MANY /LPF (FEW); WBC,URINE 0-4 /HPF (0-4)
[2023-01-25 05:08] LABS: BACTERIA,URINE 2+ /HPF (Neg)
[2023-01-25] MEDS ORDERED: K and/or MAG REPLACEMENT MC SCH (08:00)
[2023-01-25] MEDS ORDERED: docusate sod 100mg capsule PO SCH (08:00)
[2023-01-25] MEDS ORDERED: heparin, porcine 5000 units/ml vial SQ SCH (08:00)
--- NOTE | 2023-01-25 08:00 | NUR ---
colostomy bag changed this am. Large amount of soft brown stool noted, surrounding skin intact, no redness.
[2023-01-25 13:27] LABS: BASOPHILS # (AUTO) 0.1 X10'3 (0-0.2); BASOPHILS % (AUTO) 1.2 % (0-1); EOSINOPHILS # (AUTO) 0.1 X10'3 (0-0.9); EOSINOPHILS % (AUTO) 1.6 % (0-6); HEMATOCRIT 23.7 % (35.0-45.0); HEMOGLOBIN 8.1 g/dl (12.0-16.0); LYMPHOCYTES # (AUTO) 0.4 X10'3 (1.1-4.8); LYMPHOCYTES % (AUTO) 6.1 % (21-51); MEAN CORPUSCULAR HGB CONC 34.3 g/dL (33.0-36.5); MEAN CORPUSCULAR VOLUME 113.8 FL (78-98); MEAN PLATELET VOLUME 9.9 FL (7.4-10.4); MONOCYTES # (AUTO) 0.7 X10'3 (0-0.9); MONOCYTES % (AUTO) 11.2 % (2-12); NEUTROPHILS # (AUTO) 4.7 X10'3 (1.8-7.7); NEUTROPHILS % (AUTO) 79.9 % (42-75); PLATELET COUNT 251 X10'3 (140-440); RED BLOOD COUNT 2.08 X10'6 (4.20-5.60); RED CELL DISTRIBUTION WIDTH 17.9 % (11.5-14.5); WHITE BLOOD COUNT 5.8 X10'3 (4.5-11.0)
[2023-01-25 14:02] VITALS: BP 129/47; PULSE 57; RESP 20; O2SAT 100
--- NOTE | 2023-01-25 14:02 | NUR ---
Given a cup of water.
[2023-01-25] MEDS ORDERED: BISA10SU60 RC (16:26)
== END 2023-01-25 16:04 | disposition home or self-care (01) | DRG 389 ==
LOC: ER 22:35 → ED HOLD 01-25 02:53
PROVIDERS: ADMIT Internal Medicine; ATTEND Internal Medicine
PROC: 0D9670Z Drainage of Stomach with Drainage Device, Via Natural or Artificial Opening (ICD-10-PCS; principal; 2023-01-25)
DX: K56.600 Partial intestinal obstruction, unspecified as to cause (principal); I13.0 Hypertensive heart and chronic kidney disease with heart failure and stage 1 through stage 4 chronic kidney disease, or unspecified chronic kidney disease; I50.22 Chronic systolic (congestive) heart failure; N39.0 Urinary tract infection, site not specified; N18.30 Chronic kidney disease, stage 3 unspecified; I25.10 Atherosclerotic heart disease of native coronary artery without angina pectoris; M81.0 Age-related osteoporosis without current pathological fracture; I48.91 Unspecified atrial fibrillation; E78.00 Pure hypercholesterolemia, unspecified; F32.A Depression, unspecified; Z93.3 Colostomy status; Z85.3 Personal history of malignant neoplasm of breast; Z90.710 Acquired absence of both cervix and uterus; Z90.49 Acquired absence of other specified parts of digestive tract; Z88.5 Allergy status to narcotic agent; Z88.2 Allergy status to sulfonamides; Z88.8 Allergy status to other drugs, medicaments and biological substances; Z79.01 Long term (current) use of anticoagulants; Z79.899 Other long term (current) drug therapy; Z95.0 Presence of cardiac pacemaker
CPT/HCPCS: 36415; 74018; 74176; 80053; 81001; 82607; 83690; 84145; 84443; 85007; 85008; 85025; 87088; 99285; A4421; C1758; G0378; J1644; J2405; J7030

== ENCOUNTER 2023-04-03 14:12 | Inpatient (IN) | payer MEDICARE, MEDICAID ==
[~2023-04-03] VITALS: Ht 157.5 cm; Wt 77.0 kg
[~2023-04-03 14:12] MED LIST changes: +BISA10SU60 RC
[2023-04-03] MEDS ORDERED: normal saline 500ml IV soln 500 ML IV SCH (15:35)
[2023-04-03] MEDS: normal saline 500ml IV soln 500 ML IV ONE (16:19)
[2023-04-03 16:29] LABS: BILIRUBIN,URINE NEGATIVE (Neg); CLARITY,URINE CLOUDY (Clear); COLOR,URINE YELLOW (Yellow); GLUCOSE, URINE NEGATIVE (Neg); KETONES,URINE NEGATIVE (Neg); LEUKOCYTE ESTERASE ,URINE MODERATE (Neg); NITRITES, URINE NEGATIVE (Neg); OCCULT BLOOD,URINE LARGE (Neg); PROTEIN,URINE 30 mg/dl (Neg); UROBILINOGEN,URINE 0.2 E.U/dL (0.2-1.0)
[2023-04-03 16:33] LABS: UA COLLECTION TYPE STRAIGHT CATH
[2023-04-03 16:35] LABS: BACTERIA,URINE 4+ /HPF (Neg); RBC,URINE 50-100 /HPF (0-2); SQUAMOUS EPITHELIAL CELL,UR FEW /LPF (FEW); WBC,URINE TNTC /HPF (0-4)
[2023-04-03 16:36] LABS: WBC CLUMPS,URINE MANY /HPF (NEGATIVE)
[2023-04-03] MEDS: CefTRIAXone/D5W-Rocephin 1gm 50 ML IV ONE (17:00)
[2023-04-03 18:01] LABS: BASOPHILS % (AUTO) 0.4 % (0-1); EOSINOPHILS % (AUTO) 0.2 % (0-6); LYMPHOCYTES # (AUTO) 0.3 X10'3 (1.1-4.8); LYMPHOCYTES % (AUTO) 4.3 % (21-51); MEAN CORPUSCULAR HGB CONC 34.6 g/dL (33.0-36.5); MEAN PLATELET VOLUME 9.4 FL (7.4-10.4); MONOCYTES # (AUTO) 1.1 X10'3 (0-0.9); NEUTROPHILS # (AUTO) 6.3 X10'3 (1.8-7.7); NEUTROPHILS % (AUTO) 81.1 % (42-75); PLATELET COUNT 180 X10'3 (140-440); RED BLOOD COUNT 1.74 X10'6 (4.20-5.60); RED CELL DISTRIBUTION WIDTH 17.7 % (11.5-14.5); WHITE BLOOD COUNT 7.7 X10'3 (4.5-11.0)
[2023-04-03 18:08] LABS: HEMATOCRIT 19.1 % (35.0-45.0); HEMOGLOBIN 6.6 g/dl (12.0-16.0)
[2023-04-03 18:20] LABS: ALANINE AMINOTRANSFERASE 13 U/L (12-78); ALBUMIN 2.5 G/DL (3.4-5.0); ALBUMIN/GLOBULIN RATIO 0.9 (1.1-1.5); ALKALINE PHOSPHATASE 72 IU/L (46-116); ANION GAP 9 (8-16); ASPARTATE AMINO TRANSFERASE 14 U/L (10-37); BILIRUBIN,DIRECT 0.2 MG/DL (0-0.3); BILIRUBIN,TOTAL 0.6 MG/DL (0.1-1.0); BLOOD UREA NITROGEN 35 MG/DL (7-18); BUN/CREATININE RATIO 26.3 (10.0-20.0); C-REACTIVE PROTEIN 7.03 MG/DL (0.0-0.5); CALCIUM 7.4 MG/DL (8.5-10.1); CHLORIDE 109 MMOL/L (99-107); CREATININE 1.33 MG/DL (0.40-0.90); GLUCOSE 119 MG/DL (70-104); POTASSIUM 3.7 MMOL/L (3.5-5.1); SODIUM 142 MMOL/L (135-145); TOTAL PROTEIN 5.2 G/DL (6.4-8.2); eCRCL 23 ML/MIN; eGFR 38 ML/MIN
[2023-04-03] MEDS ORDERED: magnesium Cl slow-release 64mg tablet PO PRN (19:10)
[2023-04-03] MEDS ORDERED: magnesium hydroxide 30ml (MOM) UD suspension PO PRN (19:10)
[2023-04-03] MEDS ORDERED: ondansetron/PF 4mg/2ml inj IV PRN (19:10)
[2023-04-03] MEDS ORDERED: mag hydrox/Alum hydrox/simeth 30ml oral suspension PO PRN (19:10)
[2023-04-03] MEDS ORDERED: magnesium 2GM in 50ml NS 50 ML IV PRN (19:10)
[2023-04-03] MEDS ORDERED: potassium Cl 40MEQ/1/2NS 520ml 520 ML IV PRN (19:10)
[2023-04-03] MEDS ORDERED: magnesium 4gm in 100ml NS 100 ML IV PRN (19:10)
[2023-04-03] MEDS ORDERED: potassium Cl 20 mEq SR tablet PO PRN ×2 (19:10)
[2023-04-03] MEDS: K and/or MAG REPLACEMENT MC SCH (20:00)
[2023-04-03 20:05] LABS: APTT 32 SECONDS (22-32); INR 1.2 INR; PROTHROMBIN TIME 12.9 SECONDS (9.0-12.0)
[2023-04-03 21:00] LABS: ANISOCYTOSIS 1+; PLATELET ESTIMATE NORMAL
[2023-04-03 21:01] LABS: SCHISTOCYTES FEW; TEAR DROP CELLS FEW
[2023-04-03 21:02] LABS: ACANTHOCYTES FEW
[2023-04-03 21:20] LABS: CREATINE KINASE 73 U/L (26-192); LIPASE 10 U/L (16-77); PHOSPHORUS 3.1 MG/DL (2.3-4.5)
[2023-04-03 22:25] LABS: ABSOLUTE RETICS # 35100 /CUMM (23000-93000)
[2023-04-03] MEDS: cyanocobalamin 1,000 mcg/ml inj IM ONE (23:26)
[2023-04-03] MEDS: pantoprazole 40MG/NS 100ML BAG 100 ML IV SCH (23:27)
[2023-04-04 02:59] VITALS: BP 99/42; PULSE 52; RESP 14; TEMP 100
[2023-04-04 03:15] VITALS: BP 93/42; PULSE 62; RESP 18; TEMP 99.2
[2023-04-04 04:05] VITALS: BP 93/45; PULSE 50; RESP 23; TEMP 98.7
[2023-04-04] MEDS: acetaminophen 325mg tablet PO PRN (04:07)
[2023-04-04 06:33] LABS: BASOPHILS # (AUTO) 0.1 X10'3 (0-0.2); BASOPHILS % (AUTO) 0.8 % (0-1); EOSINOPHILS % (AUTO) 0.1 % (0-6); HEMATOCRIT 24.7 % (35.0-45.0); HEMOGLOBIN 8.6 g/dl (12.0-16.0); LYMPHOCYTES # (AUTO) 0.5 X10'3 (1.1-4.8); LYMPHOCYTES % (AUTO) 5.8 % (21-51); MEAN CORPUSCULAR HEMOGLOBIN 36.9 PG (27.0-31.0); MEAN CORPUSCULAR HGB CONC 34.9 g/dL (33.0-36.5); MEAN CORPUSCULAR VOLUME 105.5 FL (78-98); MEAN PLATELET VOLUME 9.6 FL (7.4-10.4); MONOCYTES # (AUTO) 1.1 X10'3 (0-0.9); MONOCYTES % (AUTO) 13.1 % (2-12); NEUTROPHILS # (AUTO) 6.8 X10'3 (1.8-7.7); NEUTROPHILS % (AUTO) 80.2 % (42-75); PLATELET COUNT 195 X10'3 (140-440); RED BLOOD COUNT 2.34 X10'6 (4.20-5.60); RED CELL DISTRIBUTION WIDTH 21.7 % (11.5-14.5); WHITE BLOOD COUNT 8.4 X10'3 (4.5-11.0)
[2023-04-04 07:18] LABS: ALBUMIN 2.8 G/DL (3.4-5.0); ANION GAP 9 (8-16); BLOOD UREA NITROGEN 38 MG/DL (7-18); BUN/CREATININE RATIO 23.8 (10.0-20.0); CALCIUM 8.6 MG/DL (8.5-10.1); CHLORIDE 106 MMOL/L (99-107); GLUCOSE 140 MG/DL (70-104); MAGNESIUM 2.5 MG/DL (1.5-2.4); PRO BRAIN NATRIURETIC PEPTIDE 14187 PG/ML (0-450); SODIUM 139 MMOL/L (135-145); TOTAL CARBON DIOXIDE 23.9 MMOL/L (24-32); eCRCL 19 ML/MIN; eGFR 30 ML/MIN
[2023-04-04] MEDS: water for injection, sterile 100 ML in HUM PROTHROMB CPLX-LANS 2,500 UNIT IV ONE (07:43)
[2023-04-04 07:49] LABS: POTASSIUM 3.8 MMOL/L (3.5-5.1)
[2023-04-04] MEDS: CefTRIAXone/D5W-Rocephin 1gm 50 ML IV SCH (08:00)
[2023-04-04] MEDS: CefTRIAXone/D5W-Rocephin 1gm 50 ML IV ONE (10:35)
[2023-04-04 17:16] LABS: BASOPHILS % (AUTO) 0.6 % (0-1); EOSINOPHILS % (AUTO) 0.6 % (0-6); HEMATOCRIT 26.4 % (35.0-45.0); HEMOGLOBIN 9.1 g/dl (12.0-16.0); LYMPHOCYTES # (AUTO) 0.5 X10'3 (1.1-4.8); LYMPHOCYTES % (AUTO) 6.2 % (21-51); MEAN CORPUSCULAR HEMOGLOBIN 36.4 PG (27.0-31.0); MEAN CORPUSCULAR HGB CONC 34.5 g/dL (33.0-36.5); MEAN CORPUSCULAR VOLUME 105.5 FL (78-98); MEAN PLATELET VOLUME 9.7 FL (7.4-10.4); MONOCYTES # (AUTO) 1.1 X10'3 (0-0.9); MONOCYTES % (AUTO) 14.7 % (2-12); NEUTROPHILS # (AUTO) 6.1 X10'3 (1.8-7.7); NEUTROPHILS % (AUTO) 77.9 % (42-75); PLATELET COUNT 197 X10'3 (140-440); RED CELL DISTRIBUTION WIDTH 21.3 % (11.5-14.5); WHITE BLOOD COUNT 7.8 X10'3 (4.5-11.0)
[2023-04-04] MEDS: amiodarone 200mg tablet PO SCH (19:13)
[2023-04-04] MEDS: ferrous sulfate 325mg tablet PO SCH (19:14)
[2023-04-04 22:00] VITALS: BP 117/45; PULSE 66; RESP 16; TEMP 98; O2SAT 96
[2023-04-05 06:00] VITALS: BP 129/44; PULSE 69; RESP 17; TEMP 98; O2SAT 97
[2023-04-05 06:28] LABS: BASOPHILS % (AUTO) 0.8 % (0-1); EOSINOPHILS # (AUTO) 0.1 X10'3 (0-0.9); HEMATOCRIT 24.2 % (35.0-45.0); HEMOGLOBIN 8.5 g/dl (12.0-16.0); LYMPHOCYTES # (AUTO) 0.4 X10'3 (1.1-4.8); LYMPHOCYTES % (AUTO) 7.2 % (21-51); MEAN CORPUSCULAR HEMOGLOBIN 36.7 PG (27.0-31.0); MEAN CORPUSCULAR HGB CONC 35.1 g/dL (33.0-36.5); MEAN CORPUSCULAR VOLUME 104.7 FL (78-98); MEAN PLATELET VOLUME 9.9 FL (7.4-10.4); MONOCYTES % (AUTO) 15.5 % (2-12); NEUTROPHILS # (AUTO) 4.6 X10'3 (1.8-7.7); NEUTROPHILS % (AUTO) 75.5 % (42-75); PLATELET COUNT 203 X10'3 (140-440); RED BLOOD COUNT 2.31 X10'6 (4.20-5.60); RED CELL DISTRIBUTION WIDTH 20.5 % (11.5-14.5); WHITE BLOOD COUNT 6.2 X10'3 (4.5-11.0)
[2023-04-05 06:33] LABS: ALBUMIN 2.4 G/DL (3.4-5.0); ANION GAP 5 (8-16); BLOOD UREA NITROGEN 31 MG/DL (7-18); BUN/CREATININE RATIO 21.7 (10.0-20.0); CALCIUM 7.9 MG/DL (8.5-10.1); CHLORIDE 104 MMOL/L (99-107); CREATININE 1.43 MG/DL (0.40-0.90); GLUCOSE 113 MG/DL (70-104); MAGNESIUM 2.1 MG/DL (1.5-2.4); POTASSIUM 3.5 MMOL/L (3.5-5.1); SODIUM 133 MMOL/L (135-145); eCRCL 21 ML/MIN; eGFR 35 ML/MIN
[2023-04-05 07:38] LABS: ANISOCYTOSIS 3+; PLATELET ESTIMATE NORMAL; POIKILOCYTOSIS 1+; TOTAL CELLS COUNTED 100
[2023-04-05 07:39] LABS: SCHISTOCYTES FEW
[2023-04-05 08:00] VITALS: RESP 16; O2SAT 99
[2023-04-05] MEDS ORDERED: amiodarone 200mg tablet PO SCH (08:00)
[2023-04-05] MEDS: polyethylene glycol 3350 17gm powd pack PO SCH (08:59)
[2023-04-05] MEDS: carVEDilol 3.125mg tablet PO SCH (09:00)
[2023-04-05] MEDS: folic acid 1mg tablet PO SCH (09:01)
[2023-04-05] MEDS: apixaban 2.5mg tablet PO SCH (09:01)
[2023-04-05 10:00] VITALS: BP 118/53; PULSE 67; RESP 16; TEMP 97.9; O2SAT 99
[2023-04-05] MEDS: CefTRIAXone 2gm/D5W 50ml BAG 50 ML IV SCH (10:45)
[2023-04-05] MEDS: piperacillin/tazo 3.375gm/50ml 50 ML IV SCH (16:15)
[2023-04-05 18:00] VITALS: BP 134/56; PULSE 65; RESP 16; TEMP 97.9; O2SAT 99
[2023-04-05 20:00] VITALS: RESP 16; O2SAT 99
[2023-04-05 22:00] VITALS: BP 127/51; PULSE 63; RESP 16; TEMP 98.8; O2SAT 97
[2023-04-06 06:00] VITALS: BP 138/51; PULSE 60; RESP 16; TEMP 97.9; O2SAT 98
[2023-04-06 07:03] LABS: ALBUMIN 2.3 G/DL (3.4-5.0); ANION GAP 8 (8-16); BLOOD UREA NITROGEN 26 MG/DL (7-18); BUN/CREATININE RATIO 20.6 (10.0-20.0); CALCIUM 7.9 MG/DL (8.5-10.1); CHLORIDE 107 MMOL/L (99-107); CREATININE 1.26 MG/DL (0.40-0.90); GLUCOSE 109 MG/DL (70-104); MAGNESIUM 2.3 MG/DL (1.5-2.4); POTASSIUM 4.1 MMOL/L (3.5-5.1); SODIUM 140 MMOL/L (135-145); eCRCL 24 ML/MIN; eGFR 40 ML/MIN
[2023-04-06 07:07] LABS: BASOPHILS # (AUTO) 0.1 X10'3 (0-0.2); BASOPHILS % (AUTO) 1.2 % (0-1); EOSINOPHILS # (AUTO) 0.1 X10'3 (0-0.9); EOSINOPHILS % (AUTO) 2.8 % (0-6); HEMATOCRIT 25.6 % (35.0-45.0); HEMOGLOBIN 8.8 g/dl (12.0-16.0); LYMPHOCYTES # (AUTO) 0.3 X10'3 (1.1-4.8); LYMPHOCYTES % (AUTO) 7.3 % (21-51); MEAN CORPUSCULAR HEMOGLOBIN 36.1 PG (27.0-31.0); MEAN CORPUSCULAR HGB CONC 34.4 g/dL (33.0-36.5); MEAN CORPUSCULAR VOLUME 104.9 FL (78-98); MEAN PLATELET VOLUME 9.7 FL (7.4-10.4); MONOCYTES # (AUTO) 0.7 X10'3 (0-0.9); MONOCYTES % (AUTO) 15.2 % (2-12); NEUTROPHILS # (AUTO) 3.2 X10'3 (1.8-7.7); NEUTROPHILS % (AUTO) 73.5 % (42-75); PLATELET COUNT 215 X10'3 (140-440); RED BLOOD COUNT 2.44 X10'6 (4.20-5.60); RED CELL DISTRIBUTION WIDTH 20.2 % (11.5-14.5); WHITE BLOOD COUNT 4.4 X10'3 (4.5-11.0)
[2023-04-06] MEDS: furosemide 40mg tablet PO SCH (07:46)
[2023-04-06] MEDS: pantoprazole 40mg Tablet.DR PO SCH (07:47)
[2023-04-06] MEDS: cyanocobalamin 500mcg tablet PO SCH (07:47)
[2023-04-06 08:00] VITALS: RESP 16; O2SAT 99
[2023-04-06 08:36] LABS: ANISOCYTOSIS 3+; PLATELET ESTIMATE NORMAL; TOTAL CELLS COUNTED 100
[2023-04-06 08:37] LABS: ACANTHOCYTES 1+; BURR CELLS 1+; ELLIPTOCYTES 1+; ROULEAUX 1+
[2023-04-06 10:00] VITALS: BP 118/53; PULSE 67; RESP 16; TEMP 97.9; O2SAT 99
[2023-04-06 19:22] VITALS: BP 128/51; PULSE 64; RESP 14; TEMP 98.5; O2SAT 98
[2023-04-06 20:00] VITALS: RESP 15; O2SAT 96
[2023-04-06 22:00] VITALS: BP 125/53; PULSE 60; RESP 16; TEMP 97.8; O2SAT 99
[2023-04-07 04:31] LABS: ALBUMIN 2.4 G/DL (3.4-5.0); ANION GAP 9 (8-16); BLOOD UREA NITROGEN 28 MG/DL (7-18); BUN/CREATININE RATIO 18.4 (10.0-20.0); CALCIUM 8.6 MG/DL (8.5-10.1); CHLORIDE 106 MMOL/L (99-107); CREATININE 1.52 MG/DL (0.40-0.90); GLUCOSE 104 MG/DL (70-104); POTASSIUM 3.8 MMOL/L (3.5-5.1); SODIUM 141 MMOL/L (135-145); TOTAL CARBON DIOXIDE 26.2 MMOL/L (24-32); eCRCL 20 ML/MIN; eGFR 32 ML/MIN
[2023-04-07 04:54] LABS: BASOPHILS % (AUTO) 1.1 % (0-1); EOSINOPHILS # (AUTO) 0.2 X10'3 (0-0.9); EOSINOPHILS % (AUTO) 4.8 % (0-6); HEMATOCRIT 25.1 % (35.0-45.0); HEMOGLOBIN 8.8 g/dl (12.0-16.0); LYMPHOCYTES # (AUTO) 0.7 X10'3 (1.1-4.8); LYMPHOCYTES % (AUTO) 17.2 % (21-51); MEAN CORPUSCULAR HEMOGLOBIN 36.8 PG (27.0-31.0); MEAN CORPUSCULAR HGB CONC 35.2 g/dL (33.0-36.5); MEAN CORPUSCULAR VOLUME 104.7 FL (78-98); MEAN PLATELET VOLUME 9.7 FL (7.4-10.4); MONOCYTES # (AUTO) 0.7 X10'3 (0-0.9); MONOCYTES % (AUTO) 15.5 % (2-12); NEUTROPHILS # (AUTO) 2.6 X10'3 (1.8-7.7); NEUTROPHILS % (AUTO) 61.4 % (42-75); PLATELET COUNT 214 X10'3 (140-440); RED CELL DISTRIBUTION WIDTH 20.1 % (11.5-14.5); WHITE BLOOD COUNT 4.2 X10'3 (4.5-11.0)
[2023-04-07 07:00] VITALS: BP 137/56; PULSE 60; RESP 15; TEMP 97.7; O2SAT 99
[2023-04-07 11:30] VITALS: BP 152/66; PULSE 65; RESP 14; TEMP 97.6; O2SAT 100
[2023-04-07 18:00] VITALS: BP 131/56; PULSE 56; RESP 18; TEMP 98.4; O2SAT 97
[2023-04-07 20:00] VITALS: RESP 16; O2SAT 99
[2023-04-07 23:00] VITALS: BP 125/44; PULSE 69; RESP 16; TEMP 97.2; O2SAT 99
[2023-04-08 06:00] VITALS: BP 122/53; PULSE 70; RESP 16; TEMP 97.6; O2SAT 99
[2023-04-08 06:46] LABS: BASOPHILS % (AUTO) 1.2 % (0-1); EOSINOPHILS # (AUTO) 0.1 X10'3 (0-0.9); EOSINOPHILS % (AUTO) 3.4 % (0-6); HEMOGLOBIN 9.2 g/dl (12.0-16.0); LYMPHOCYTES # (AUTO) 0.6 X10'3 (1.1-4.8); LYMPHOCYTES % (AUTO) 14.6 % (21-51); MEAN CORPUSCULAR HEMOGLOBIN 35.5 PG (27.0-31.0); MEAN CORPUSCULAR HGB CONC 34.1 g/dL (33.0-36.5); MEAN PLATELET VOLUME 9.4 FL (7.4-10.4); MONOCYTES # (AUTO) 0.6 X10'3 (0-0.9); MONOCYTES % (AUTO) 13.8 % (2-12); NEUTROPHILS # (AUTO) 2.7 X10'3 (1.8-7.7); PLATELET COUNT 246 X10'3 (140-440); RED CELL DISTRIBUTION WIDTH 19.9 % (11.5-14.5); WHITE BLOOD COUNT 4.1 X10'3 (4.5-11.0)
[2023-04-08 07:10] LABS: ALBUMIN 2.6 G/DL (3.4-5.0); ANION GAP 7 (8-16); BLOOD UREA NITROGEN 26 MG/DL (7-18); BUN/CREATININE RATIO 16.8 (10.0-20.0); CHLORIDE 105 MMOL/L (99-107); CREATININE 1.55 MG/DL (0.40-0.90); GLUCOSE 114 MG/DL (70-104); MAGNESIUM 2.1 MG/DL (1.5-2.4); SODIUM 139 MMOL/L (135-145); TOTAL CARBON DIOXIDE 27.1 MMOL/L (24-32); eCRCL 19 ML/MIN; eGFR 31 ML/MIN
[2023-04-08 10:00] VITALS: BP_SYST 122; BP_SYST 130; BP_DIAS 53; BP_DIAS 60; PULSE 68; PULSE 84; RESP 16; TEMP 97.8; O2SAT 99
[2023-04-08 18:00] VITALS: BP 124/59; PULSE 67; RESP 16; TEMP 97.8; O2SAT 99
[2023-04-08 19:00] VITALS: RESP 17
[2023-04-08 19:50] VITALS: BP 109/49; PULSE 60; O2SAT 99
[2023-04-08] MEDS: piperacillin/tazo 3.375gm/50ml 50 ML IV SCH (20:01)
[2023-04-08 22:00] VITALS: BP 119/80; PULSE 60; RESP 15; TEMP 98.1; O2SAT 97
[2023-04-09 06:00] VITALS: BP 128/54; PULSE 57; RESP 16; TEMP 97; O2SAT 98
[2023-04-09 10:00] VITALS: BP 129/59; PULSE 60; RESP 18; TEMP 98.1; O2SAT 99
== END 2023-04-09 14:45 | DRG 871 ==
LOC: ER 14:12 → ED HOLD 19:13 → EDBEDREQ 04-04 19:07 → ORTHO 4S 04-04 21:22
PROVIDERS: ADMIT Family Medicine; ATTEND Family Medicine
PROC: 30233N1 Transfusion of Nonautologous Red Blood Cells into Peripheral Vein, Percutaneous Approach (ICD-10-PCS; principal; 2023-04-04)
DX: A41.9 Sepsis, unspecified organism (principal); I50.23 Acute on chronic systolic (congestive) heart failure; N39.0 Urinary tract infection, site not specified; N17.9 Acute kidney failure, unspecified; I13.0 Hypertensive heart and chronic kidney disease with heart failure and stage 1 through stage 4 chronic kidney disease, or unspecified chronic kidney disease; I48.20 Chronic atrial fibrillation, unspecified; N18.30 Chronic kidney disease, stage 3 unspecified; D53.9 Nutritional anemia, unspecified; I25.10 Atherosclerotic heart disease of native coronary artery without angina pectoris; F32.A Depression, unspecified; K21.9 Gastro-esophageal reflux disease without esophagitis; E78.00 Pure hypercholesterolemia, unspecified; Z95.0 Presence of cardiac pacemaker; Z92.3 Personal history of irradiation; Z93.3 Colostomy status; Z85.820 Personal history of malignant melanoma of skin; Z90.49 Acquired absence of other specified parts of digestive tract; Z90.710 Acquired absence of both cervix and uterus; Z88.5 Allergy status to narcotic agent; Z88.2 Allergy status to sulfonamides; Z88.8 Allergy status to other drugs, medicaments and biological substances; Z85.3 Personal history of malignant neoplasm of breast; Z79.01 Long term (current) use of anticoagulants; Z79.899 Other long term (current) drug therapy
CPT/HCPCS: 36415; 36430; 71045; 74176; 76770; 80048; 80076; 81001; 82550; 83605; 83690; 83735; 83880; 84100; 84145; 84484; 85007; 85008; 85025; 85045; 85610; 85730; 86140; 86885; 86900; 86901; 86920; 87040; 87077; 87081; 87088; 87186; 93306; 97161; 97530; 99285; A4353; A4649; A6212; A6213; A6250; C9113; G0378; J0696; J2543; J3420; J7030; J7040; J7050; J7168; P9016

== ENCOUNTER 2023-07-26 05:13 | Inpatient (IN) | payer MEDICARE, MEDICAID ==
[~2023-07-26] VITALS: Ht 165.1 cm; Wt 69.0 kg
[2023-07-26] MEDS: nitroGLYCERIN 0.4mg SUBLingual tab SL PRN (05:40)
[2023-07-26] MEDS: aspirin 81mg tab.chew PO ONE (05:40)
[2023-07-26 06:35] LABS: BASOPHILS # (AUTO) 0.1 X10'3 (0-0.2); BASOPHILS % (AUTO) 1.3 % (0-1); EOSINOPHILS # (AUTO) 0.1 X10'3 (0-0.9); EOSINOPHILS % (AUTO) 1.8 % (0-6); HEMOGLOBIN 8.4 g/dl (12.0-16.0); LYMPHOCYTES # (AUTO) 0.8 X10'3 (1.1-4.8); LYMPHOCYTES % (AUTO) 19.4 % (21-51); MEAN CORPUSCULAR HEMOGLOBIN 38.1 PG (27.0-31.0); MEAN CORPUSCULAR HGB CONC 34.8 g/dL (33.0-36.5); MEAN CORPUSCULAR VOLUME 109.4 FL (78-98); MEAN PLATELET VOLUME 9.2 FL (7.4-10.4); MONOCYTES # (AUTO) 0.5 X10'3 (0-0.9); MONOCYTES % (AUTO) 11.2 % (2-12); NEUTROPHILS # (AUTO) 2.7 X10'3 (1.8-7.7); NEUTROPHILS % (AUTO) 66.3 % (42-75); PLATELET COUNT 282 X10'3 (140-440); RED CELL DISTRIBUTION WIDTH 20.3 % (11.5-14.5); WHITE BLOOD COUNT 4.1 X10'3 (4.5-11.0)
[2023-07-26 06:52] LABS: ALBUMIN 2.9 G/DL (3.4-5.0); ANION GAP 6 (8-16); BLOOD UREA NITROGEN 19 MG/DL (7-18); BUN/CREATININE RATIO 14.8 (10.0-20.0); CALCIUM 8.8 MG/DL (8.5-10.1); CHLORIDE 101 MMOL/L (99-107); CREATININE 1.28 MG/DL (0.40-0.90); GLUCOSE 112 MG/DL (70-104); PRO BRAIN NATRIURETIC PEPTIDE 5225 PG/ML (0-450); SODIUM 131 MMOL/L (135-145); TOTAL CARBON DIOXIDE 24.5 MMOL/L (24-32); eCRCL 27 ML/MIN; eGFR 39 ML/MIN
[2023-07-26 06:54] LABS: POTASSIUM 4.9 MMOL/L (3.5-5.1)
[2023-07-26 07:10] LABS: ACANTHOCYTES 2+; ANISOCYTOSIS 3+; PLATELET ESTIMATE NORMAL
[2023-07-26 07:11] LABS: POIKILOCYTOSIS FEW
[2023-07-26] MEDS: normal saline 1000ml 1,000 ML IV ONE (09:51)
[2023-07-26] MEDS ORDERED: acetaminophen 325mg tablet PO PRN ×2 (10:15)
[2023-07-26] MEDS ORDERED: ondansetron/PF 4mg/2ml inj IV PRN (10:15)
[2023-07-26] MEDS ORDERED: magnesium hydroxide 30ml (MOM) UD suspension PO PRN (10:15)
[2023-07-26] MEDS ORDERED: mag hydrox/Alum hydrox/simeth 30ml oral suspension PO PRN (10:15)
[2023-07-26] MEDS: furosemide 20 MG/2 ML vial IV SCH (12:02)
[2023-07-26 15:13] LABS: BILIRUBIN,URINE NEGATIVE (Neg); CLARITY,URINE CLOUDY (Clear); COLOR,URINE YELLOW (Yellow); GLUCOSE, URINE NEGATIVE (Neg); KETONES,URINE NEGATIVE (Neg); LEUKOCYTE ESTERASE ,URINE LARGE (Neg); NITRITES, URINE NEGATIVE (Neg); OCCULT BLOOD,URINE TRACE-INTACT (Neg); PH,URINE 7.5 (4.8-8.0); PROTEIN,URINE NEGATIVE (Neg); UA COLLECTION TYPE NON-SPECIFIED; UROBILINOGEN,URINE 0.2 E.U/dL (0.2-1.0)
[2023-07-26 15:35] LABS: BACTERIA,URINE 4+ /HPF (Neg); WBC CLUMPS,URINE MANY /HPF (NEGATIVE); WBC,URINE TNTC /HPF (0-4)
[2023-07-26 15:36] LABS: RBC,URINE 0-2 /HPF (0-2); SQUAMOUS EPITHELIAL CELL,UR FEW /LPF (FEW)
[2023-07-26 16:18] VITALS: BP 146/87; PULSE 87; RESP 18; TEMP 96.9; O2SAT 96
[2023-07-26 18:00] VITALS: BP 105/43; PULSE 82; RESP 15; TEMP 98.1; O2SAT 99
[2023-07-26 20:00] VITALS: RESP 16; O2SAT 98
[2023-07-26] MEDS: docusate sod 100mg capsule PO SCH (20:00)
[2023-07-26] MEDS: polyethylene glycol 3350 17gm powd pack PO SCH (21:38)
[2023-07-26] MEDS: apixaban 2.5mg tablet PO SCH (21:38)
[2023-07-26] MEDS: amiodarone 200mg tablet PO SCH (21:39)
[2023-07-26 22:00] VITALS: BP 100/62; PULSE 78; RESP 14; TEMP 98; O2SAT 99
[2023-07-27] VITALS (8 sets, daily range): BP systolic 99–120; BP diastolic 56–69; PULSE 79–91; RESP 15–20; TEMP 97.3–98.6; O2SAT 97–99
[2023-07-27 06:10] LABS: BASOPHILS # (AUTO) 0.1 X10'3 (0-0.2); BASOPHILS % (AUTO) 1.3 % (0-1); EOSINOPHILS # (AUTO) 0.1 X10'3 (0-0.9); EOSINOPHILS % (AUTO) 1.8 % (0-6); HEMATOCRIT 27.5 % (35.0-45.0); HEMOGLOBIN 9.5 g/dl (12.0-16.0); LYMPHOCYTES # (AUTO) 0.7 X10'3 (1.1-4.8); LYMPHOCYTES % (AUTO) 15.8 % (21-51); MEAN CORPUSCULAR HEMOGLOBIN 37.5 PG (27.0-31.0); MEAN CORPUSCULAR HGB CONC 34.5 g/dL (33.0-36.5); MEAN CORPUSCULAR VOLUME 108.9 FL (78-98); MEAN PLATELET VOLUME 9.5 FL (7.4-10.4); MONOCYTES # (AUTO) 0.6 X10'3 (0-0.9); MONOCYTES % (AUTO) 13.5 % (2-12); NEUTROPHILS # (AUTO) 2.9 X10'3 (1.8-7.7); NEUTROPHILS % (AUTO) 67.6 % (42-75); PLATELET COUNT 304 X10'3 (140-440); RED BLOOD COUNT 2.53 X10'6 (4.20-5.60); RED CELL DISTRIBUTION WIDTH 20.3 % (11.5-14.5); WHITE BLOOD COUNT 4.3 X10'3 (4.5-11.0)
[2023-07-27 06:51] LABS: ALANINE AMINOTRANSFERASE 25 U/L (12-78); ALBUMIN/GLOBULIN RATIO 0.9 (1.1-1.5); ALKALINE PHOSPHATASE 90 IU/L (46-116); ANION GAP 8 (8-16); ASPARTATE AMINO TRANSFERASE 21 U/L (10-37); BILIRUBIN,DIRECT 0.2 MG/DL (0-0.3); BILIRUBIN,TOTAL 0.5 MG/DL (0.1-1.0); BLOOD UREA NITROGEN 21 MG/DL (7-18); BUN/CREATININE RATIO 15.4 (10.0-20.0); CALCIUM 8.7 MG/DL (8.5-10.1); CHLORIDE 99 MMOL/L (99-107); CREATININE 1.36 MG/DL (0.40-0.90); GLUCOSE 107 MG/DL (70-104); POTASSIUM 3.8 MMOL/L (3.5-5.1); SODIUM 132 MMOL/L (135-145); THYROID STIMULATING HORMONE 0.85 ulU/ml (0.34-4.50); TOTAL CARBON DIOXIDE 25.2 MMOL/L (24-32); TOTAL PROTEIN 6.5 G/DL (6.4-8.2); eCRCL 25 ML/MIN; eGFR 37 ML/MIN
[2023-07-27] MEDS: CefTRIAXone/D5W-Rocephin 1gm 50 ML IV SCH (07:52)
[2023-07-27] MEDS: polyethylene glycol 3350 17gm powd pack PO SCH ×2 (10:15→19:23)
[2023-07-27] MEDS ORDERED: ondansetron 4mg rapidly disintigrating tab PO PRN (10:20)
[2023-07-27] MEDS: lactose-reduced food (Ensure Enlive) - 237ml bottle PO SCH (13:05)
[2023-07-28 02:00] VITALS: BP 100/56; PULSE 73; RESP 18; TEMP 98.1; O2SAT 96
[2023-07-28 06:00] VITALS: BP 112/61; PULSE 85; RESP 20; TEMP 98.2; O2SAT 99
[2023-07-28 06:01] LABS: BASOPHILS # (AUTO) 0.1 X10'3 (0-0.2); BASOPHILS % (AUTO) 1.4 % (0-1); EOSINOPHILS # (AUTO) 0.1 X10'3 (0-0.9); EOSINOPHILS % (AUTO) 1.8 % (0-6); HEMATOCRIT 27.2 % (35.0-45.0); HEMOGLOBIN 9.6 g/dl (12.0-16.0); LYMPHOCYTES # (AUTO) 0.9 X10'3 (1.1-4.8); LYMPHOCYTES % (AUTO) 20.3 % (21-51); MEAN CORPUSCULAR HEMOGLOBIN 37.7 PG (27.0-31.0); MEAN CORPUSCULAR HGB CONC 35.2 g/dL (33.0-36.5); MEAN CORPUSCULAR VOLUME 107.2 FL (78-98); MEAN PLATELET VOLUME 9.2 FL (7.4-10.4); MONOCYTES # (AUTO) 0.6 X10'3 (0-0.9); MONOCYTES % (AUTO) 12.9 % (2-12); NEUTROPHILS # (AUTO) 2.9 X10'3 (1.8-7.7); NEUTROPHILS % (AUTO) 63.6 % (42-75); PLATELET COUNT 308 X10'3 (140-440); RED BLOOD COUNT 2.54 X10'6 (4.20-5.60); WHITE BLOOD COUNT 4.6 X10'3 (4.5-11.0)
[2023-07-28 06:10] LABS: ALBUMIN 2.9 G/DL (3.4-5.0); ANION GAP 11 (8-16); BLOOD UREA NITROGEN 27 MG/DL (7-18); BUN/CREATININE RATIO 18.8 (10.0-20.0); CHLORIDE 99 MMOL/L (99-107); CREATININE 1.44 MG/DL (0.40-0.90); GLUCOSE 126 MG/DL (70-104); POTASSIUM 3.9 MMOL/L (3.5-5.1); SODIUM 131 MMOL/L (135-145); TOTAL CARBON DIOXIDE 21.3 MMOL/L (24-32); eCRCL 24 ML/MIN; eGFR 34 ML/MIN
[2023-07-28 08:00] VITALS: RESP 20; O2SAT 99
[2023-07-28] MEDS ORDERED: AMOX-580 PO (09:32)
[2023-07-28] MEDS ORDERED: FURO-150 PO (09:32)
[2023-07-28 11:00] VITALS: BP 121/71; PULSE 98; RESP 16; TEMP 98; O2SAT 98
== END 2023-07-28 11:20 | disposition home or self-care (01) | DRG 291 ==
LOC: ER 05:14 → ED HOLD 10:14 → EDBEDREQ 12:37 → PCU 3S 12:56
PROVIDERS: ADMIT Internal Medicine; ATTEND Internal Medicine
DX: I13.0 Hypertensive heart and chronic kidney disease with heart failure and stage 1 through stage 4 chronic kidney disease, or unspecified chronic kidney disease (principal); I50.33 Acute on chronic diastolic (congestive) heart failure; N39.0 Urinary tract infection, site not specified; E87.1 Hypo-osmolality and hyponatremia; B96.89 Other specified bacterial agents as the cause of diseases classified elsewhere; N18.30 Chronic kidney disease, stage 3 unspecified; D64.9 Anemia, unspecified; D32.9 Benign neoplasm of meninges, unspecified; I48.0 Paroxysmal atrial fibrillation; B96.20 Unspecified Escherichia coli [E. coli] as the cause of diseases classified elsewhere; I25.10 Atherosclerotic heart disease of native coronary artery without angina pectoris; L89.151 Pressure ulcer of sacral region, stage 1; Z96.653 Presence of artificial knee joint, bilateral; E78.00 Pure hypercholesterolemia, unspecified; Z82.49 Family history of ischemic heart disease and other diseases of the circulatory system; Z85.3 Personal history of malignant neoplasm of breast; Z90.710 Acquired absence of both cervix and uterus; Z79.899 Other long term (current) drug therapy; Z93.3 Colostomy status; Z88.8 Allergy status to other drugs, medicaments and biological substances; Z95.0 Presence of cardiac pacemaker; Z98.1 Arthrodesis status
CPT/HCPCS: 36415; 70450; 71045; 80048; 80076; 81001; 83880; 84439; 84443; 84484; 85008; 85025; 87077; 87088; 87186; 93005; 96360; 99285; A6212; A6213; A6250; G0378; J0696; J1940; J7030; J7040